=== PATIENT | male | born 1965 | race Caucasian/White ===

== ENCOUNTER 2019-12-25 09:10 | Outpatient (CLI) | payer OTHER, SELFPAY ==
[2019-12-25 09:44] LABS: Basophils Absolute Auto 0.1 K/mm3 (0.0-0.1); Basophils Percent Auto 0.9 % (0.2-1.2); Eosinophils Absolute Auto 0.6 K/mm3 (0-0.3); Eosinophils Percent Auto 8.2 % (0-4.4); Hematocrit 41.5 % (42.0-52.0); Hemoglobin 13.7 g/dL (14.0-18.0); Immature Granulocyte Absolute 0.04 K/mm3 (0.00-0.031); Immature Granulocyte Percent A 0.5 % (0-0.5); Lymphocytes Percent Auto 22.9 % (18.3-44.2); Mean Corpuscular Hemoglobin 30.9 pg (26-34); Mean Corpuscular Volume 93.7 fl (80-100); Mean Platelet Volume 9.4 fl (7.4-10.4); Monocytes Absolute Auto 0.9 K/mm3 (0.1-0.6); Monocytes Percent Auto 11.8 % (2.6-8.5); Neutrophils Absolute Auto 4.4 K/mm3 (1.3-6.7); Neutrophils Percent Auto 55.7 % (45.5-73.1); Platelet Count Result 244 k/mm3 (150-375); Red Blood Count 4.43 M/mm3 (4.6-6.20); Red Cell Distribution Width 12.9 % (11.5-14.5); White Blood Count 7.9 K/mm3 (4.5-10.0)
[2019-12-25 09:53] LABS: Hemoglobin A1C 6.1 % (<5.7)
[2019-12-25 09:58] LABS: Alanine Aminotransferase 54 U/L (4-50); Albumin Level 4.3 g/dL (3.5-5.1); Alkaline Phosphatase 72 U/L (38-126); Anion Gap 10 mmol/L (8-16); Aspartate Amino Transferase 45 U/L (17-59); Bilirubin,Total 0.4 mg/dL (0.2-1.3); Blood Urea Nitrogen 13 mg/dL (9-20); Calcium 9.4 mg/dL (8.4-10.2); Carbon Dioxide 30 mmol/L (22-30); Chloride 104 mmol/L (98-107); Cholesterol 146 mg/dL (0-200); Estimated Glomerular Filt Rate > 60; Glucose 112 mg/dL (75-110); HDL Direct 57 mg/dL; Potassium 4.4 mmol/L (3.4-5.0); Sodium 144 mmol/L (137-145); Triglycerides 73 mg/dL (<150)
[2019-12-25 10:09] LABS: LDL Cholesterol Direct 66 mg/dL
[2019-12-28 10:55] LABS: Amphetamines negative; Barbiturates negative; Benzodiazepines negative; Cocaine Metabolites negative; Marijuana Metabolites negative; PCP negative
== END 2019-12-25 09:11 | disposition home or self-care (01) ==
PROVIDERS: PCP Internal Medicine; Visit Provider Clinical Nurse Specialist
DX: E11.9 Type 2 diabetes mellitus without complications (principal); Z51.81 Encounter for therapeutic drug level monitoring; Z79.899 Other long term (current) drug therapy
CPT/HCPCS: 36415; 80053; 80061; 80307; 83036; 85025

== ENCOUNTER 2020-11-04 10:41 | Outpatient (CLI) | payer OTHER, SELFPAY ==
[2020-11-04 11:27] LABS: Basophils Absolute Auto 0.1 K/mm3 (0.0-0.1); Basophils Percent Auto 0.8 % (0.2-1.2); Eosinophils Absolute Auto 0.6 K/mm3 (0-0.3); Eosinophils Percent Auto 7.2 % (0-4.4); Hematocrit 40.1 % (42.0-52.0); Hemoglobin 13.6 g/dL (14.0-18.0); Immature Granulocyte Absolute 0.02 K/mm3 (0.00-0.031); Immature Granulocyte Percent A 0.2 % (0-0.5); Lymphocytes Absolute Auto 1.68 K/mm3 (0.9-3.2); Lymphocytes Percent Auto 20.4 % (18.3-44.2); Mean Corpuscular HGB Conc 33.9 g/dl (32-36); Mean Corpuscular Hemoglobin 28.8 pg (26-34); Mean Platelet Volume 9.4 fl (7.4-10.4); Monocytes Absolute Auto 0.7 K/mm3 (0.1-0.6); Monocytes Percent Auto 8.4 % (2.6-8.5); Neutrophils Absolute Auto 5.2 K/mm3 (1.3-6.7); Platelet Count Result 274 k/mm3 (150-375); Red Blood Count 4.72 M/mm3 (4.6-6.20); Red Cell Distribution Width 13.1 % (11.5-14.5); White Blood Count 8.2 K/mm3 (4.5-10.0)
[2020-11-04 11:38] LABS: Alanine Aminotransferase 23 U/L (4-50); Albumin Level 4.6 g/dL (3.5-5.1); Alkaline Phosphatase 113 U/L (38-126); Anion Gap 15 mmol/L (8-16); Aspartate Amino Transferase 27 U/L (17-59); Bilirubin,Total 0.8 mg/dL (0.2-1.3); Blood Urea Nitrogen 6 mg/dL (9-20); Calcium 9.2 mg/dL (8.4-10.2); Carbon Dioxide 23 mmol/L (22-30); Chloride 94 mmol/L (98-107); Cholesterol 123 mg/dL (0-200); Estimated Glomerular Filt Rate > 60; Glucose 157 mg/dL (65-110); HDL Direct 34 mg/dL; Potassium 4.4 mmol/L (3.4-5.0); Sodium 132 mmol/L (137-145); Triglycerides 110 mg/dL (<150)
[2020-11-04 11:48] LABS: Hemoglobin A1C 8.4 % (<5.7)
[2020-11-04 11:49] LABS: LDL Cholesterol Direct 65 mg/dL
[2020-11-04 12:06] LABS: Prostate Specific Antigen 1.5 ng/mL (< OR = 4.0)
[2020-11-04 12:22] LABS: Creatinine Urine 88.4 mg/dL
[2020-11-04 12:27] LABS: MALB Creatinine Ratio 28.2 mg/g (0-30); Microalbumin Urine Random 24.9 mg/L (0-16.7)
== END 2020-11-04 10:42 | disposition home or self-care (01) ==
LOC: ANHLAB 10:44
PROVIDERS: PCP Internal Medicine; Visit Provider Clinical Nurse Specialist
DX: Z12.5 Encounter for screening for malignant neoplasm of prostate (principal); I10 Essential (primary) hypertension; E11.9 Type 2 diabetes mellitus without complications; Z79.4 Long term (current) use of insulin; E78.5 Hyperlipidemia, unspecified
CPT/HCPCS: 36415; 80053; 80061; 82043; 83036; 84153; 85025; G0103

== ENCOUNTER 2021-02-14 10:27 | Outpatient (CLI) | payer OTHER, SELFPAY ==
[2021-02-14 11:02] LABS: Anion Gap 12 mmol/L (8-16); Blood Urea Nitrogen 8 mg/dL (9-20); Calcium 9.1 mg/dL (8.4-10.2); Carbon Dioxide 24 mmol/L (22-30); Chloride 102 mmol/L (98-107); Estimated Glomerular Filt Rate > 60; Glucose 228 mg/dL (65-110); Potassium 4.2 mmol/L (3.4-5.0); Sodium 138 mmol/L (137-145)
[2021-02-14 11:15] LABS: Hemoglobin A1C 9.9 % (<5.7)
[2021-02-14 11:25] LABS: Creatinine Urine 46.5 mg/dL
[2021-02-14 11:30] LABS: MALB Creatinine Ratio 14.2 mg/g (0-30); Microalbumin Urine Random 6.6 mg/L (0-16.7)
== END 2021-02-14 10:28 | disposition home or self-care (01) ==
PROVIDERS: PCP Internal Medicine; Visit Provider Clinical Nurse Specialist
DX: E11.9 Type 2 diabetes mellitus without complications (principal); Z51.81 Encounter for therapeutic drug level monitoring; Z79.4 Long term (current) use of insulin
CPT/HCPCS: 36415; 80048; 82043; 82607; 83036

== ENCOUNTER 2021-05-17 07:15 | Outpatient (CLI) | payer OTHER, SELFPAY ==
[2021-05-17 08:14] LABS: Basophils Absolute Auto 0.1 K/mm3 (0.0-0.1); Basophils Percent Auto 0.8 % (0.2-1.2); Eosinophils Absolute Auto 0.6 K/mm3 (0-0.3); Eosinophils Percent Auto 6.1 % (0-4.4); Hematocrit 37.3 % (42.0-52.0); Hemoglobin 12.3 g/dL (14.0-18.0); Immature Granulocyte Absolute 0.03 K/mm3 (0.00-0.031); Immature Granulocyte Percent A 0.3 % (0-0.5); Lymphocytes Percent Auto 23.7 % (18.3-44.2); Mean Corpuscular Hemoglobin 28.9 pg (26-34); Mean Corpuscular Volume 87.8 fl (80-100); Mean Platelet Volume 9.6 fl (7.4-10.4); Monocytes Absolute Auto 0.9 K/mm3 (0.1-0.6); Monocytes Percent Auto 9.5 % (2.6-8.5); Neutrophils Absolute Auto 5.5 K/mm3 (1.3-6.7); Neutrophils Percent Auto 59.6 % (45.5-73.1); Platelet Count Result 249 k/mm3 (150-375); Red Blood Count 4.25 M/mm3 (4.6-6.20); Red Cell Distribution Width 14.9 % (11.5-14.5); White Blood Count 9.3 K/mm3 (4.5-10.0)
[2021-05-17 08:36] LABS: Alanine Aminotransferase 16 U/L (4-50); Alkaline Phosphatase 96 U/L (38-126); Anion Gap 6 mmol/L (8-16); Aspartate Amino Transferase 25 U/L (17-59); Bilirubin,Total 0.4 mg/dL (0.2-1.3); Blood Urea Nitrogen 13 mg/dL (9-20); Calcium 8.6 mg/dL (8.4-10.2); Carbon Dioxide 28 mmol/L (22-30); Chloride 105 mmol/L (98-107); Estimated Glomerular Filt Rate > 60; Glucose 109 mg/dL (65-110); Potassium 3.7 mmol/L (3.4-5.0); Sodium 139 mmol/L (137-145)
[2021-05-17 08:43] LABS: Hemoglobin A1C 6.7 % (<5.7)
== END 2021-05-17 07:16 | disposition home or self-care (01) ==
LOC: ANHLAB 07:16
PROVIDERS: PCP Internal Medicine; Visit Provider Nurse Practitioner
DX: E11.9 Type 2 diabetes mellitus without complications (principal); Z79.4 Long term (current) use of insulin
CPT/HCPCS: 36415; 80053; 83036; 85025

== ENCOUNTER 2021-08-24 07:05 | Outpatient (CLI) | payer OTHER, SELFPAY ==
[2021-08-24 07:36] LABS: Anion Gap 7 mmol/L (8-16); Blood Urea Nitrogen 12 mg/dL (9-20); Calcium 8.7 mg/dL (8.4-10.2); Carbon Dioxide 27 mmol/L (22-30); Chloride 103 mmol/L (98-107); Estimated Glomerular Filt Rate > 60; Glucose 93 mg/dL (65-110); Potassium 3.9 mmol/L (3.4-5.0); Sodium 137 mmol/L (137-145)
[2021-08-24 08:34] LABS: Creatinine Urine 36.2 mg/dL
[2021-08-24 09:05] LABS: MALB Creatinine Ratio < 16.6 mg/g (0-30); Microalbumin Urine Random < 6.0 mg/L (0-16.7)
== END 2021-08-24 07:06 | disposition home or self-care (01) ==
LOC: ANHLAB 07:06
PROVIDERS: PCP Internal Medicine; Visit Provider Clinical Nurse Specialist
DX: E11.9 Type 2 diabetes mellitus without complications (principal); Z79.4 Long term (current) use of insulin
CPT/HCPCS: 36415; 80048; 82043; 83036

== ENCOUNTER 2021-10-25 00:52 | Day surgery (SDC) | payer OTHER, SELFPAY ==
[2021-10-12 13:20] VITALS: BMI 49.8
[2021-10-25 07:45] VITALS: BP 150/87; PULSE 58; RESP 18; TEMP 35.9; O2SAT 99; BMI 49.7
[2021-10-25] MEDS: LACTATED RINGERS 1,000 ML 150 ML IV CONT (08:14)
[2021-10-25 08:16] LABS: Glucose Point of Care 144 mg/dl (65-105)
--- NOTE | 2021-10-25 08:34 | WPDANESEPPF ---
Anes - Initial Pre Proc Eval Procedure: Operation Date: 10/25/21 09:15 Proposed Procedures p Screening Colonoscopy - Babak Duke MD Date/Time: 10/25/21 08:34 Surgeon: Babak Duke MD Pre Op Diagnosis: neoplasm screening, hx colon polyps Patient Data Age: 56 Gender: M Height: 1.7 m Weight: 144.1 kg Last Vital Signs Temp 35.9 C L 10/25/21 07:45 Pulse 58 L 10/25/21 07:45 Resp 18 10/25/21 07:45 BP 150/87 H 10/25/21 07:45 Pulse Ox 99 10/25/21 07:45 O2 Del Method Room Air 10/25/21 07:45 Allergies Allergy/AdvReac Type Severity Reaction Status Date / Time ONDINA Inhibitors Allergy Mild Cough Verified 10/25/21 07:56 Home Medications Medication Instructions Recorded Confirmed Type blood-glucose meter (Blood Glucose #1 ea 11/17/20 10/25/21 Rx Monitoring kit) metoprolol tartrate 100 mg tablet 100 mg PO DAILY #90 tabs 01/04/21 10/25/21 Rx metformin 1,000 mg tablet 1,000 mg PO BID #180 tabs 06/22/21 10/25/21 Rx atorvastatin 40 mg tablet See Rx Instructions .Route 08/02/21 10/25/21 Rx .COMPLEX #90 tabs losartan 100 mg tablet See Rx Instructions .Route 08/02/21 10/25/21 Rx .COMPLEX #90 tabs tamsulosin 0.4 mg capsule See Rx Instructions .Route 08/02/21 10/25/21 Rx .COMPLEX #90 caps insulin glargine 100 unit/mL See Rx Instructions .Route 08/25/21 10/25/21 Rx subcutaneous solution (Lantus .COMPLEX #10 mL U-100 Insulin) hydralazine 50 mg tablet See Rx Instructions .Route 10/03/21 10/25/21 Rx .COMPLEX #270 tabs Laboratory Tests 10/25/21 08:03 POC Capillary Glucose 144 mg/dl H mg/dl (65-105) Patient hx anesthesia problems: none Family hx anesthesia problems: none Results Review: All pre-operative results and documents have been reviewed as part of the pre-operative evaluation. [facility] Past Medical History Medical History (Updated 10/25/21 @ 08:35 by Nathaniel Rogers MD) Anxiety Depression Diabetes Hyperlipidemia, unspecified Hypertension Morbid obesity Surgical History Surgical History H/O gastric bypass History of appendectomy History of carpal tunnel release Family History Family History Mother FH: ovarian cancer Hypertension Social History Social History Smoking packs per day: 0.5 Smoking cigarettes per day: 10.0 Years smoked: 10 Smoking pack-years: 5.00 Smoking status: Former smoker Tobacco type: cigarettes Alcohol intake: never Substance use type: does not use Living arrangements: alone Anes - Eval Final PreProcedure Day of Procedure 10/25/21 08:34 Patient weight: morbidly obese Heart: regular rate and rhythm Lungs: clear to auscultation Neurological: alert and oriented Last oral intake: >/= 8 hours ASA classification: III Emergent: no Anesthetic plan: proceed Anesthesia type and monitoring: general GIVS and standard monitoring Results Review: All pre-operative results and documents have been reviewed as part of the pre-operative evaluation. Informed Consent: The patient's anesthetic plan and its attendant risks and benefits were discussed with the patient/family/POA. Questions were solicited and answers provided to the satisfaction of the patient/family/POA.
--- NOTE | 2021-10-25 08:56 | PM.HPGS ---
History of Present Illness History of Present Illness Consent: Risks, benefits, and alternatives have been discussed and questions answered. Patient agrees to proceed with procedure. Chief complaint: neoplasm screening, hx colon polyps Narrative: Bonifacio Campuzano is a 56 year old male with colon polyp in 2019 Review of Systems Constitutional: Constitutional: Denies headache(s) and Denies weakness Eyes: Eyes: Denies blurry vision ENT: Reports Normal hearing present, Denies headache(s) and Denies neck pain Cardiovascular: Cardiovascular: Denies chest pain and Denies dyspnea Respiratory: Respiratory: Denies dyspnea Gastrointestinal: Gastrointestinal: Reports no additional gastrointestinal complaints Genitourinary: Genitourinary: Denies dysuria Musculoskeletal: Musculoskeletal: Denies neck pain Integumentary/Breasts: Skin/Breast: Denies dry skin Neurologic: Reports Normal hearing present, Denies headache(s) and Denies weakness Psychiatric: Psychiatric: Denies anxiety Endocrine: Endocrine: Denies change in body appearance Hematologic/Lymphatic: Hematologic/Lymphatic: Denies easy bleeding Allergic/Immunologic: Allergic/Immunologic: Denies urticaria PMFSH Past Medical History Medical History (Updated 10/25/21 @ 08:56 by Babak Duke MD) Adenomatous colon polyp Anxiety Depression Diabetes Hyperlipidemia, unspecified Hypertension Morbid obesity Surgical History Surgical History H/O gastric bypass History of appendectomy History of carpal tunnel release Family History Family History Mother FH: ovarian cancer Hypertension Social History Social History Smoking packs per day: 0.5 Smoking cigarettes per day: 10.0 Years smoked: 10 Smoking pack-years: 5.00 Smoking status: Former smoker Tobacco type: cigarettes Alcohol intake: never Substance use type: does not use Living arrangements: alone Meds Home Medications and Allergies Home Medications Medication Instructions Recorded Confirmed Type blood-glucose meter (Blood Glucose #1 ea 11/17/20 10/25/21 Rx Monitoring kit) metoprolol tartrate 100 mg tablet 100 mg PO DAILY #90 tabs 01/04/21 10/25/21 Rx metformin 1,000 mg tablet 1,000 mg PO BID #180 tabs 06/22/21 10/25/21 Rx atorvastatin 40 mg tablet See Rx Instructions .Route 08/02/21 10/25/21 Rx .COMPLEX #90 tabs losartan 100 mg tablet See Rx Instructions .Route 08/02/21 10/25/21 Rx .COMPLEX #90 tabs tamsulosin 0.4 mg capsule See Rx Instructions .Route 08/02/21 10/25/21 Rx .COMPLEX #90 caps insulin glargine 100 unit/mL See Rx Instructions .Route 08/25/21 10/25/21 Rx subcutaneous solution (Lantus .COMPLEX #10 mL U-100 Insulin) hydralazine 50 mg tablet See Rx Instructions .Route 10/03/21 10/25/21 Rx .COMPLEX #270 tabs Allergies Allergy/AdvReac Type Severity Reaction Status Date / Time ONDINA Inhibitors Allergy Mild Cough Verified 10/25/21 07:56 Vital Signs Vital Signs - 24 hr 10/25/21 07:45 Temperature 96.6 F L Pulse Rate 58 L Respiratory Rate 18 Blood Pressure 150/87 H Pulse Oximetry 99 Oxygen Delivery Room Air Exam Const: General: comfortable and no acute distress HENMT: General nose exam: Normal nares present Eyes: General: appearance normal, both eyes and all related structures Neck: Neck: no JVD Resp: Auscultation: clear to auscultation bilaterally Cardio: Rate: regular rate Rhythm: regular rhythm GI: Inspection: non-distended GI Palp: Yes Soft to palpation Skin: General skin exam: normal color Neuro: General: gait normal Speech: normal speech Extrem: General: normal to inspection Psych: Mental Status: mental status grossly normal Assessment and Plan Assessment and plan (1) Adenomatous colon polyp: Code(s): D12.6 -
[2021-10-25 09:22] VITALS: BP 126/55; PULSE 52; RESP 17; O2SAT 97
[2021-10-25 09:32] VITALS: BP 120/56; PULSE 52; RESP 19; O2SAT 96
[2021-10-25 09:34] LABS: Glucose Point of Care 141 mg/dl (65-105)
[2021-10-25 09:42] VITALS: BP 125/58; PULSE 48; RESP 12; O2SAT 97
== END 2021-10-25 09:47 | disposition home or self-care (01) ==
PROVIDERS: PCP Internal Medicine; Visit Provider Internal Medicine Gastroenterology
PROC: 0DJD8ZZ Inspection of Lower Intestinal Tract, Via Natural or Artificial Opening Endoscopic (ICD-10-PCS; CPT 45378; principal; 2021-10-25 09:15)
DX: Z12.11 Encounter for screening for malignant neoplasm of colon (principal); D12.3 Benign neoplasm of transverse colon; E11.9 Type 2 diabetes mellitus without complications; I10 Essential (primary) hypertension; E78.5 Hyperlipidemia, unspecified; F41.9 Anxiety disorder, unspecified; F32.A Depression, unspecified; E66.01 Morbid (severe) obesity due to excess calories; Z68.42 Body mass index [BMI] 45.0-49.9, adult; Z98.84 Bariatric surgery status; Z79.84 Long term (current) use of oral hypoglycemic drugs; Z79.4 Long term (current) use of insulin; Z87.891 Personal history of nicotine dependence
CPT/HCPCS: 45385; 82948; 88305; J2704; J7120

== ENCOUNTER 2022-01-23 09:36 | Outpatient (CLI) | payer OTHER, SELFPAY ==
[2022-01-23 19:54] LABS: Alanine Aminotransferase 23 U/L (6-50); Alkaline Phosphatase 96 U/L (38-126); Anion Gap 6 mmol/L (8-16); Aspartate Amino Transferase 22 U/L (17-59); Bilirubin,Total 0.3 mg/dL (0.2-1.3); Blood Urea Nitrogen 19 mg/dL (9-20); Calcium 8.5 mg/dL (8.4-10.2); Carbon Dioxide 28 mmol/L (22-30); Chloride 103 mmol/L (98-107); Estimated Glomerular Filt Rate > 60; Glucose 165 mg/dL (65-110); Potassium 4.8 mmol/L (3.4-5.0); Sodium 137 mmol/L (137-145)
[2022-01-23 20:06] LABS: Basophils Absolute Auto 0.1 K/mm3 (0.0-0.1); Eosinophils Absolute Auto 0.6 K/mm3 (0-0.3); Eosinophils Percent Auto 5.4 % (0-4.4); Hematocrit 38.1 % (42.0-52.0); Hemoglobin 12.4 g/dL (14.0-18.0); Immature Granulocyte Absolute 0.02 K/mm3 (0.00-0.031); Immature Granulocyte Percent A 0.2 % (0-0.5); Lymphocytes Percent Auto 18.6 % (18.3-44.2); Mean Corpuscular HGB Conc 32.5 g/dl (32-36); Mean Corpuscular Hemoglobin 28.1 pg (26-34); Mean Corpuscular Volume 86.4 fl (80-100); Mean Platelet Volume 9.9 fl (7.4-10.4); Monocytes Absolute Auto 0.7 K/mm3 (0.1-0.6); Monocytes Percent Auto 7.1 % (2.6-8.5); Neutrophils Absolute Auto 6.9 K/mm3 (1.3-6.7); Neutrophils Percent Auto 67.7 % (45.5-73.1); Platelet Count Result 293 k/mm3 (150-375); Red Blood Count 4.41 M/mm3 (4.6-6.20); White Blood Count 10.2 K/mm3 (4.5-10.0)
[2022-01-23 20:41] LABS: Creatinine Urine 81.4 mg/dL
[2022-01-23 20:43] LABS: MALB Creatinine Ratio 7.6 mg/g (0-30); Microalbumin Urine Random 6.2 mg/L (0-16.7)
[2022-01-23 21:02] LABS: Iron 41 ug/dL (49-181)
[2022-01-23 21:11] LABS: Percent Iron Saturation 10 % (20-50)
[2022-01-23 21:28] LABS: Vitamin D 25 Hydroxy 23.9 ng/mL
[2022-01-23 21:38] LABS: Ferritin 9.87 ng/mL (11.1-264)
[2022-01-23 21:51] LABS: Hemoglobin A1C 9.6 % (<5.7)
== END 2022-01-23 09:37 | disposition home or self-care (01) ==
LOC: ANHGOSHLAB 09:38
PROVIDERS: PCP Internal Medicine; Visit Provider Clinical Nurse Specialist
DX: E11.9 Type 2 diabetes mellitus without complications (principal); Z79.4 Long term (current) use of insulin; D64.9 Anemia, unspecified; I10 Essential (primary) hypertension; E55.9 Vitamin D deficiency, unspecified
CPT/HCPCS: 36415; 80053; 82043; 82306; 82607; 82728; 83036; 83540; 83550; 84443; 85025

== ENCOUNTER 2022-04-26 09:41 | Outpatient (CLI) | payer OTHER, SELFPAY ==
[2022-04-26 20:15] LABS: Prostate Specific Antigen 1.3 ng/mL (< OR = 4.0)
[2022-04-26 20:19] LABS: Iron 46 ug/dL (49-181)
[2022-04-26 20:32] LABS: Percent Iron Saturation 11 % (20-50)
[2022-04-26 20:36] LABS: Basophils Absolute Auto 0.1 K/mm3 (0.0-0.1); Basophils Percent Auto 0.9 % (0.2-1.2); Eosinophils Absolute Auto 0.3 K/mm3 (0-0.3); Hematocrit 41.2 % (42.0-52.0); Hemoglobin 13.6 g/dL (14.0-18.0); Immature Granulocyte Absolute 0.03 K/mm3 (0.00-0.031); Immature Granulocyte Percent A 0.4 % (0-0.5); Immature Reticulocyte Fraction 6.9 % (3.0-15.9); Lymphocytes Absolute Auto 1.99 K/mm3 (0.9-3.2); Lymphocytes Percent Auto 24.6 % (18.3-44.2); Mean Corpuscular Hemoglobin 28.9 pg (26-34); Mean Corpuscular Volume 87.7 fl (80-100); Mean Platelet Volume 10.1 fl (7.4-10.4); Monocytes Absolute Auto 0.6 K/mm3 (0.1-0.6); Monocytes Percent Auto 7.2 % (2.6-8.5); Neutrophils Absolute Auto 5.1 K/mm3 (1.3-6.7); Neutrophils Percent Auto 62.9 % (45.5-73.1); Platelet Count Result 272 k/mm3 (150-375); Red Cell Distribution Width 14.9 % (11.5-14.5); Reticulocyte Percent 1.73 % (0.7-4.3); Reticulocytes Absolute 0.08 B/L (32.2-175.7); White Blood Count 8.1 K/mm3 (4.5-10.0)
[2022-04-26 20:41] LABS: Hemoglobin A1C 7.3 % (<5.7)
== END 2022-04-26 09:42 | disposition home or self-care (01) ==
LOC: ANHGOSHLAB 09:42
PROVIDERS: PCP Internal Medicine; Visit Provider Clinical Nurse Specialist
DX: E11.9 Type 2 diabetes mellitus without complications (principal); D64.9 Anemia, unspecified; Z12.5 Encounter for screening for malignant neoplasm of prostate; I10 Essential (primary) hypertension; E55.9 Vitamin D deficiency, unspecified
CPT/HCPCS: 36415; 82306; 82728; 83036; 83540; 83550; 84153; 84443; 85025; 85046; G0103

== ENCOUNTER 2022-11-02 08:44 | Outpatient (CLI) | payer OTHER, SELFPAY ==
[2022-11-02 17:03] LABS: Anion Gap 7 mmol/L (8-16); Blood Urea Nitrogen 10 mg/dL (9-20); Calcium 8.8 mg/dL (8.4-10.2); Carbon Dioxide 29 mmol/L (22-30); Chloride 101 mmol/L (98-107); Estimated Glomerular Filt Rate > 60; Glucose 113 mg/dL (65-110); Potassium 3.9 mmol/L (3.4-5.0); Sodium 137 mmol/L (137-145)
[2022-11-02 23:09] LABS: Creatinine Urine 118.6 mg/dL
[2022-11-02 23:13] LABS: MALB Creatinine Ratio 7.3 mg/g (0-30); Microalbumin Urine Random 8.7 mg/L (0-16.7)
== END 2022-11-02 08:45 | disposition home or self-care (01) ==
LOC: ANHGOSHLAB 08:46
PROVIDERS: PCP Internal Medicine; Visit Provider Clinical Nurse Specialist
DX: E11.9 Type 2 diabetes mellitus without complications (principal); Z79.4 Long term (current) use of insulin
CPT/HCPCS: 36415; 80048; 82043; 83036

== ENCOUNTER 2023-03-08 09:37 | Outpatient (CLI) | payer OTHER, SELFPAY ==
[2023-03-08 12:28] LABS: Basophils Absolute Auto 0.1 K/mm3 (0.0-0.1); Basophils Percent Auto 0.6 % (0.2-1.2); Eosinophils Absolute Auto 0.4 K/mm3 (0-0.3); Eosinophils Percent Auto 3.9 % (0-4.4); Hematocrit 39.8 % (42.0-52.0); Hemoglobin 13.1 g/dL (14.0-18.0); Immature Granulocyte Absolute 0.04 K/mm3 (0.00-0.031); Immature Granulocyte Percent A 0.4 % (0-0.5); Lymphocytes Absolute Auto 1.74 K/mm3 (0.9-3.2); Lymphocytes Percent Auto 15.7 % (18.3-44.2); Mean Corpuscular HGB Conc 32.9 g/dl (32-36); Mean Corpuscular Hemoglobin 29.3 pg (26-34); Mean Platelet Volume 9.4 fl (7.4-10.4); Monocytes Absolute Auto 0.8 K/mm3 (0.1-0.6); Monocytes Percent Auto 6.8 % (2.6-8.5); Neutrophils Percent Auto 72.6 % (45.5-73.1); Platelet Count Result 298 k/mm3 (150-375); Red Blood Count 4.47 M/mm3 (4.6-6.20); Red Cell Distribution Width 13.4 % (11.5-14.5); White Blood Count 11.1 K/mm3 (4.5-10.0)
[2023-03-08 12:43] LABS: Iron 43 ug/dL (49-181)
[2023-03-08 12:49] LABS: Percent Iron Saturation 14 % (20-50)
[2023-03-08 12:52] LABS: Alanine Aminotransferase 21 U/L (6-50); Albumin Level 3.9 g/dL (3.5-5.1); Alkaline Phosphatase 99 U/L (38-126); Anion Gap 10 mmol/L (8-16); Aspartate Amino Transferase 42 U/L (17-59); Bilirubin,Total 0.4 mg/dL (0.2-1.3); Blood Urea Nitrogen 9 mg/dL (9-20); Carbon Dioxide 24 mmol/L (22-30); Chloride 103 mmol/L (98-107); Estimated Glomerular Filt Rate > 60; Glucose 124 mg/dL (65-110); Potassium 4.1 mmol/L (3.4-5.0); Sodium 137 mmol/L (137-145)
[2023-03-08 13:03] LABS: Hemoglobin A1C 7.6 % (<5.7)
[2023-03-08 13:27] LABS: Prostate Specific Antigen 1.1 ng/mL (< OR = 4.0)
[2023-03-09 01:54] LABS: Vitamin D 25 Hydroxy 29.6 ng/mL
== END 2023-03-08 09:38 | disposition home or self-care (01) ==
LOC: ANHGOSHLAB 09:38
PROVIDERS: PCP Internal Medicine; Visit Provider Clinical Nurse Specialist
DX: E11.9 Type 2 diabetes mellitus without complications (principal); D64.9 Anemia, unspecified; I10 Essential (primary) hypertension; Z12.5 Encounter for screening for malignant neoplasm of prostate; E55.9 Vitamin D deficiency, unspecified
CPT/HCPCS: 36415; 80053; 82306; 82607; 82728; 83036; 83540; 83550; 84153; 84443; 85025; G0103

== ENCOUNTER 2023-07-09 11:40 | Outpatient (CLI) | payer OTHER, SELFPAY ==
[2023-07-09 19:42] LABS: Basophils Absolute Auto 0.1 K/mm3 (0.0-0.1); Basophils Percent Auto 0.9 % (0.2-1.2); Eosinophils Absolute Auto 0.6 K/mm3 (0-0.3); Eosinophils Percent Auto 5.5 % (0-4.4); Hematocrit 40.4 % (42.0-52.0); Hemoglobin 13.3 g/dL (14.0-18.0); Immature Granulocyte Absolute 0.07 K/mm3 (0.00-0.031); Immature Granulocyte Percent A 0.6 % (0-0.5); Lymphocytes Absolute Auto 2.41 K/mm3 (0.9-3.2); Lymphocytes Percent Auto 21.7 % (18.3-44.2); Mean Corpuscular HGB Conc 32.9 g/dl (32-36); Mean Corpuscular Hemoglobin 29.6 pg (26-34); Mean Corpuscular Volume 89.8 fl (80-100); Mean Platelet Volume 10.1 fl (7.4-10.4); Monocytes Absolute Auto 1.1 K/mm3 (0.1-0.6); Monocytes Percent Auto 10.2 % (2.6-8.5); Neutrophils Absolute Auto 6.8 K/mm3 (1.3-6.7); Neutrophils Percent Auto 61.1 % (45.5-73.1); Platelet Count Result 270 k/mm3 (150-375); Red Cell Distribution Width 13.4 % (11.5-14.5); White Blood Count 11.1 K/mm3 (4.5-10.0)
[2023-07-09 20:15] LABS: Creatinine Urine 103.7 mg/dL
[2023-07-09 20:17] LABS: Iron 79 ug/dL (49-181)
[2023-07-09 20:22] LABS: MALB Creatinine Ratio 20.3 mg/g (0-30); Microalbumin Urine Random 21.1 mg/L (0-16.7)
[2023-07-09 20:27] LABS: Percent Iron Saturation 23 % (20-50)
[2023-07-09 20:38] LABS: Anion Gap 10 mmol/L (4-12); Blood Urea Nitrogen 16 mg/dL (9-20); Calcium 8.7 mg/dL (8.4-10.2); Carbon Dioxide 27 mmol/L (22-30); Chloride 101 mmol/L (98-107); Estimated Glomerular Filt Rate > 60; Glucose 151 mg/dL (65-110); Potassium 4.4 mmol/L (3.4-5.0); Sodium 138 mmol/L (137-145)
== END 2023-07-09 11:41 | disposition home or self-care (01) ==
LOC: ANHGOSHLAB 11:42
PROVIDERS: PCP Internal Medicine; Visit Provider Clinical Nurse Specialist
DX: D64.9 Anemia, unspecified (principal); E11.9 Type 2 diabetes mellitus without complications
CPT/HCPCS: 36415; 80048; 82043; 82728; 83036; 83540; 83550; 85025

== ENCOUNTER 2023-11-05 10:49 | Outpatient (CLI) | payer OTHER, SELFPAY ==
[2023-11-05 13:25] LABS: Basophils Absolute Auto 0.1 K/mm3 (0.0-0.1); Eosinophils Absolute Auto 0.3 K/mm3 (0-0.3); Eosinophils Percent Auto 3.8 % (0-4.4); Hematocrit 43.3 % (42.0-52.0); Hemoglobin 14.2 g/dL (14.0-18.0); Immature Granulocyte Absolute 0.04 K/mm3 (0.00-0.031); Immature Granulocyte Percent A 0.5 % (0-0.5); Lymphocytes Absolute Auto 1.75 K/mm3 (0.9-3.2); Mean Corpuscular HGB Conc 32.8 g/dl (32-36); Mean Corpuscular Hemoglobin 29.8 pg (26-34); Mean Corpuscular Volume 90.8 fl (80-100); Mean Platelet Volume 10.2 fl (7.4-10.4); Monocytes Absolute Auto 0.7 K/mm3 (0.1-0.6); Neutrophils Absolute Auto 5.9 K/mm3 (1.3-6.7); Neutrophils Percent Auto 66.7 % (45.5-73.1); Platelet Count Result 280 k/mm3 (150-375); Red Blood Count 4.77 M/mm3 (4.6-6.20); Red Cell Distribution Width 14.3 % (11.5-14.5); White Blood Count 8.8 K/mm3 (4.5-10.0)
[2023-11-05 13:30] LABS: Anion Gap 10 mmol/L (4-12); Blood Urea Nitrogen 5 mg/dL (9-20); Calcium 8.8 mg/dL (8.4-10.2); Carbon Dioxide 31 mmol/L (22-30); Chloride 91 mmol/L (98-107); Cholesterol 113 mg/dL (0-200); Estimated Glomerular Filt Rate > 60; Glucose 92 mg/dL (65-110); HDL Direct 44 mg/dL; Potassium 3.4 mmol/L (3.4-5.0); Sodium 132 mmol/L (137-145); Triglycerides 89 mg/dL (<150)
[2023-11-05 13:41] LABS: LDL Cholesterol Direct 47 mg/dL
[2023-11-05 18:29] LABS: Hemoglobin A1C 6.1 % (<5.7)
== END 2023-11-05 10:50 | disposition home or self-care (01) ==
LOC: ANHGOSHLAB 10:50
PROVIDERS: PCP Clinical Nurse Specialist; Visit Provider Clinical Nurse Specialist
DX: D64.9 Anemia, unspecified (principal); E11.9 Type 2 diabetes mellitus without complications; E78.5 Hyperlipidemia, unspecified; E87.1 Hypo-osmolality and hyponatremia; I10 Essential (primary) hypertension
CPT/HCPCS: 36415; 80048; 80061; 83036; 85025

== ENCOUNTER 2023-11-06 15:16 | Outpatient (CLI) | payer OTHER, SELFPAY ==
[2023-11-06 19:38] LABS: Anion Gap 9 mmol/L (4-12); Blood Urea Nitrogen 9 mg/dL (9-20); Calcium 8.8 mg/dL (8.4-10.2); Carbon Dioxide 31 mmol/L (22-30); Chloride 97 mmol/L (98-107); Estimated Glomerular Filt Rate > 60; Glucose 118 mg/dL (65-110); Potassium 3.7 mmol/L (3.4-5.0); Sodium 137 mmol/L (137-145)
== END 2023-11-06 15:17 | disposition home or self-care (01) ==
LOC: ANHGOSHLAB 15:17
PROVIDERS: PCP Clinical Nurse Specialist; Visit Provider Nurse Practitioner
DX: E87.1 Hypo-osmolality and hyponatremia (principal)
CPT/HCPCS: 36415; 80048

== ENCOUNTER 2023-11-08 08:21 | Outpatient (CLI) | payer OTHER, SELFPAY ==
--- NOTE | ~2023-11-08 | XR_ITS ---
3 VIEWS LUMBAR SPINE Ordering provider: Chary Curtis NP History: . LEFT SIDE LOW BACK PAIN RADIATING DOWN LEFT LEG . Comparison: None. FINDINGS: VERTEBRAL BODIES: Dextroscoliosis. Reversal of lordosis. Transitional vertebra is noted. No visible fracture or subluxation. Degenerative changes of the spine. DISK SPACES: Narrowing of the disc L2-L3, L3-L4,, L4-L5 and L5-S1. Multilevel facet joint disease. SOFT TISSUES: Aortic atherosclerotic changes. IMPRESSION: No acute osseous abnormality lumbar spine. Multilevel degenerative disc disease. Reviewed, dictated and finalized at location A.
== END 2023-11-08 08:22 | disposition home or self-care (01) ==
PROVIDERS: PCP Clinical Nurse Specialist; Visit Provider Nurse Practitioner
DX: M51.36 Other intervertebral disc degeneration, lumbar region (principal); M51.37 Other intervertebral disc degeneration, lumbosacral region
CPT/HCPCS: 72110

== ENCOUNTER 2023-11-24 19:38 | Emergency (ER) | payer OTHER, SELFPAY ==
--- NOTE | ~2023-11-24 | CT_ITS ---
EXAMINATION: CT brain wo con DATE: 11/24/2023 20:51 INDICATION: AMS . TECHNIQUE: Computed tomography (CT) of the head was performed without intravenous contrast. The mA wa s adjusted according to patient size. Iterative reconstruction technique was employed. The dose-lengt h product was 681.00 mGy-cm. COMPARISON: 10/27/2015. FINDINGS: No acute intracranial hemorrhage or extra-axial fluid collection. No hydrocephalus, mass, or herniation. No acute ischemic infarct. Unremarkable dural venous sinus attenuation. No acute osseous abnormality. The aerated spaces are clear. Moderate atrophy and mild chronic white matter change. Atherosclerotic intracranial calcification. IMPRESSION: No acute intracranial process. Reviewed, dictated and finalized at location K.
[2023-11-24 19:40] VITALS: BP 168/117; PULSE 93; RESP 18; TEMP 36.4; O2SAT 100
--- NOTE | 2023-11-24 19:48 | PC.NURSE ---
POC glucose in triage 138.
[2023-11-24 19:49] LABS: Glucose Point of Care 138 mg/dl (65-105)
[2023-11-24 19:59] VITALS: BP 195/109; PULSE 90; O2SAT 99
--- NOTE | 2023-11-24 20:06 | ECG_ITS ---
Test Date: 2023-11-24 22:14:42 Measurements Intervals [place] Rate: 85 P: 17 AR: 174 QRS: -23 QRSD: 99 T: 17 QT: 374 QTc: 446 Interpretive Statements SINUS RHYTHM BORDERLINE LEFT AXIS DEVIATION [QRS AXIS < -20] VOLTAGE CRITERIA FOR LVH [MEETS CRITERIA IN ONE OF: R(aVL), S(V1), R(V5), R(V5/V6)+S(V1)] No previous ECG available for comparison Electronically Signed On 11-25-2023 14:29:25 CDT by Nathan Caraballo M.D.
[2023-11-24 20:27] VITALS: O2SAT 98
--- NOTE | 2023-11-24 20:44 | ED.AMS ---
HPI - Altered Mental Status General Chief Complaint: Altered Mental Status Stated Complaint: Confused Time Seen by Provider: 11/24/23 20:02 History of Present Illness HPI narrative: 58-year-old male with a past medical history significant for insulin-dependent diabetes, morbid obesity and sciatica. Patient presents to the emergency department accompanied by his niece and nephew. They state that patient was altered today and confused and having memory issues. Patient apparently had a fall in the garage and they attribute his confusion to occurring after this. He has no evidence external signs of trauma, scalp hematoma or bleeding. Patient states he remembers falling but states that he does not feel confused and feels in his normal state of health. Niece at bedside states that when they came to the patient's household after they called him and he stated that he fell they almost did not recognize him and was confused. They did not check his sugar initially but he did have improvement in his symptoms after he drank vitamin water. He has not been using a glucometer recently as his old 1 broke. Recent changes were made to his Lantus and monitor ER regimen which could contribute to potential hypoglycemic episode. Patient also has a history of alcoholism and the niece's states that he resembles the last time he had significant alcohol intake. Patient denies any alcohol intake at this time. Patient states he has had intermittent headaches for last few weeks but otherwise denies any vision change, nausea, vomiting, abdominal pain, back pain, fever, chills. Related Data Allergies Allergy/AdvReac Type Severity Reaction Status Date / Time ONDINA Inhibitors Allergy Mild Cough Verified 11/06/23 14:50 Review of Systems Review of Systems: As reviewed above in HPI [facility] Past Medical History Medical History Adenomatous colon polyp Anxiety Depression Diabetes Hyperlipidemia, unspecified Hypertension Morbid obesity Surgical History Surgical History H/O gastric bypass History of appendectomy History of carpal tunnel release Family History Family History Mother FH: ovarian cancer Hypertension Social History Social History Smoking packs per day: 0 Smoking cigarettes per day: 0.0 Years smoked: 10 Smoking pack-years: 0.00 Smoking status: Former smoker Tobacco type: cigarettes Smoking end date: 02/12/04 Additional smoking assessment comments: quit smoking over 20 yrs ago Alcohol intake: never Substance use type: does not use Lack of Transportation: No Lack of Food: Never True Current Housing: I Have Housing Concerned About Future Housing: No Difficulty Paying Gas/Electric Bills: No Difficulty Paying for Meds: No Currently Unemployed: No Education: Bachelor's Degree Difficulty w/ Childcare or Family Care: No Living arrangements: alone Exam Narrative: GENERAL: Morbidly obese but not any acute distress, answering all my questions appropriately, no external evidence of trauma. HEAD: [Normocephalic, atraumatic.] EYES: [PERRLA and EOMI.] ENT: Nares clear, no rhinorrhea or epistaxis. Mucous membranes moist. NECK: Supple. CHEST: [Clear to auscultation. No respiratory distress.] HEART: [Regular rate and rhythm]. No murmur heard. [Normal peripheral pulses.] ABDOMEN: [Soft, nondistended], [nontender], [No rigidity or guarding] EXTREMITIES: Normal range of motion. [No edema.] SKIN: Warm, dry, no rash. NEURO: [No focal deficits]. Alert and oriented [x3.] PSYCH: [Normal mood and affect.] Course Vital Signs Vital signs: Vital Signs Temperature 36.4 C 11/24/23 19:40 Pulse Rate 93 11/24/23 19:40 Respiratory Rate 18 11/24/23 19:40 Bloo
[2023-11-24] MEDS: SODIUM CHLORIDE 0.9% IV 1,000 ML 999 ML IV CONT (21:15)
[2023-11-24 21:43] LABS: Basophils Absolute Auto 0.1 K/mm3 (0.0-0.1); Basophils Percent Auto 0.6 % (0.2-1.2); Eosinophils Absolute Auto 0.1 K/mm3 (0-0.3); Eosinophils Percent Auto 0.5 % (0-4.4); Hematocrit 38.9 % (42.0-52.0); Hemoglobin 13.5 g/dL (14.0-18.0); Immature Granulocyte Absolute 0.04 K/mm3 (0.00-0.031); Immature Granulocyte Percent A 0.4 % (0-0.5); Lymphocytes Absolute Auto 1.33 K/mm3 (0.9-3.2); Lymphocytes Percent Auto 12.2 % (18.3-44.2); Mean Corpuscular HGB Conc 34.7 g/dl (32-36); Mean Corpuscular Hemoglobin 30.1 pg (26-34); Mean Corpuscular Volume 86.6 fl (80-100); Mean Platelet Volume 9.2 fl (7.4-10.4); Monocytes Absolute Auto 0.8 K/mm3 (0.1-0.6); Monocytes Percent Auto 7.1 % (2.6-8.5); Neutrophils Absolute Auto 8.7 K/mm3 (1.3-6.7); Neutrophils Percent Auto 79.2 % (45.5-73.1); Platelet Count Result 308 k/mm3 (150-375); Red Blood Count 4.49 M/mm3 (4.6-6.20); Red Cell Distribution Width 14.1 % (11.5-14.5); White Blood Count 10.9 K/mm3 (4.5-10.0)
[2023-11-24 21:57] LABS: Alanine Aminotransferase 15 U/L (6-50); Albumin Level 4.5 g/dL (3.5-5.1); Alkaline Phosphatase 105 U/L (38-126); Anion Gap 13 mmol/L (4-12); Aspartate Amino Transferase 28 U/L (17-59); Bilirubin,Total 0.7 mg/dL (0.2-1.3); Blood Urea Nitrogen 9 mg/dL (9-20); Calcium 9.5 mg/dL (8.4-10.2); Carbon Dioxide 24 mmol/L (22-30); Chloride 97 mmol/L (98-107); Creatine Kinase 217 U/L (55-170); Estimated CRCL calculation 113 ml/min; Estimated Glomerular Filt Rate > 60; Glucose 115 mg/dL (65-110); Potassium 3.3 mmol/L (3.4-5.0); Sodium 134 mmol/L (137-145)
[2023-11-24 21:58] LABS: Lactic Acid Reflex 1.4 mmol/L (0.7-2.0)
[2023-11-24 21:58] LABS: Acetaminophen < 10 ug/mL (10-30); Ethanol < 10 mg/dL (<10); Salicylate < 1.0 mg/dL (2-20)
[2023-11-24 22:02] LABS: Partial Thromboplastin Time 25.9 Seconds (22.3-36.8); Prothrombin Time 13.7 Seconds (11.1-14.7)
[2023-11-24 22:09] LABS: Troponin I < 0.012 ng/mL (0.000-0.034)
[2023-11-24 22:51] LABS: Barbiturate Screen Urine Negative (Negative); Benzodiazepines Screen Urine Positive (Negative)
[2023-11-24 22:55] LABS: Amphetamine Screen Urine Negative (Negative); Cannabinoid Screen Urine Negative (Negative); Cocaine Screen Urine Negative (Negative); Methadone Screen Urine Negative (Negative); Phencyclidine Screen Urine Negative (Negative)
[2023-11-24 23:04] LABS: Opiate Screen Urine Negative (Negative)
[2023-11-24 23:18] LABS: Add Urine Microscopic? YES; Appearance Urine Cloudy (Clear); Bacteria Urine None Seen /hpf; Bilirubin Urine Negative (Negative); Blood Urine Negative (Negative); Color Urine Dark Yellow (Yellow); Glucose Urine UA Negative (Negative); Ketones Urine 1+ mg/dL (Negative); Leukocyte Esterase Ur Trace LEU/UL (Negative); Need Manual Microscopic Reviewed; Nitrate Urine Negative (Negative); Non Pathogenic Casts >20; Protein Urine 2+ mg/dL (Negative); Specific Grav Ur 1.026 (1.001-1.035); Squamous Epithelial Cell Urine Few /hpf (Few); Urobilinogen Urine 0.2 mg/dL (<2.0); WBC Urine 0-5 /hpf (0-3); pH Urine 5.5 (5.0-9.0)
--- NOTE | 2023-11-24 23:30 | PC.NURSE ---
Report received from ROB Buchanan. Assumed care of patient at this time.
[2023-11-24] MEDS: HYDROcodone/acetaminophen (*CRX) 5-325 MG TABLET 1 TAB PO (23:57)
[2023-11-25 00:04] VITALS: PULSE 91; RESP 20; O2SAT 99
== END 2023-11-25 00:14 | disposition home or self-care (01) ==
PROVIDERS: Emergency Provider Student in an Organized Health Care Education/Training Program; PCP Clinical Nurse Specialist
DX: R40.4 Transient alteration of awareness (principal); I10 Essential (primary) hypertension; E11.9 Type 2 diabetes mellitus without complications; E78.5 Hyperlipidemia, unspecified; E66.01 Morbid (severe) obesity due to excess calories; Z68.42 Body mass index [BMI] 45.0-49.9, adult; F41.9 Anxiety disorder, unspecified; F10.20 Alcohol dependence, uncomplicated; Y90.0 Blood alcohol level of less than 20 mg/100 ml; F32.A Depression, unspecified; Z98.84 Bariatric surgery status; Z86.0101 Personal history of adenomatous and serrated colon polyps; Z87.891 Personal history of nicotine dependence; Z79.4 Long term (current) use of insulin; Z79.84 Long term (current) use of oral hypoglycemic drugs; Z79.85 Long-term (current) use of injectable non-insulin antidiabetic drugs; Z79.899 Other long term (current) drug therapy; R94.31 Abnormal electrocardiogram [ECG] [EKG]
CPT/HCPCS: 36415; 70450; 80053; 80143; 80179; 80307; 81001; 82077; 82550; 82948; 83605; 84443; 84484; 85025; 85610; 85730; 93005; 96360; 99284; A9270; J7030

== ENCOUNTER 2024-01-16 14:00 | Outpatient (RCR) | payer OTHER, SELFPAY ==
--- NOTE | 2023-12-23 14:25 | PTOPEVAL1 ---
Assessment and note entered by Shadi Crawley, PT, DPT Evaluation Information Assessment Status Evaluation Diagnosis low back pain ICD-10 Condition Codes (PT) Pain in low back M54.50 Subjective Information Pt reports chronic L sided lower back pain, without a known cause. He states in August or September he noted an increase from his usual pain, also without a known cause. He states at times it feels like his L hip joint and other times it feels like sciatic pain, he states the pain and the sensations with it fluctuate. He states he was given a muscle relaxer and it did not seem to help. Pt states he has lost 30lb since September, he states at times he is too nauseous d/t the pain to eat. Pt is using a cane to walk and has been since September. Pt does not work, he states he enjoys sitting and watching TV. Pt states he cannot sleep well d/t pain. Pt reports 10-15 falls since his pain started, did not have any falls prior to August. Reported Pain Level Pain Score 2: Self Report Assessment PT Clinical Summary Pt presents to therapy today for his initial evaluation with a diagnosis of low back pain. Today he demonstrates decreased active trunk motion and passive LE motion, both limited by pain . He demonstrates a decreased gait speed and requires an AD d/t his pain. He demonstrates decreased functional mobility when compared to his prior level of function. Skilled therapy services are indicated to address the deficits noted above , to manage pain, and to return to prior level of function. Plan of Care Interventions Electrical Stimulation,Gait Training,Hot Pack/Cold Pack,Manual Therapy,Neuro Re-education,Patient/ Caregiver Educati,Therapeutic Activities, Therapeutic Exercise PT Services Indicated Yes Treatment Frequency and 2x/wk for 10 visits Duration These treatments will address the objective and functional deficits as defined above. The patient will be advanced safely and appropriately in order for the patient to progress towards his/her prior level of function. Additional exercises will be introduced and as well as a comprehensive home exercise program upon discharge, if needed, ?to ensure carryover of functional gains achieved in the clinic. This treatment plan has been reviewed and agreement upon by the patient.
--- NOTE | 2023-12-23 14:25 | OPREHPOC ---
Outpatient Therapy Plan of Care This is a Multidisciplinary Plan of Care that may contain components documented by all disciplines (PT, OT, and ST.) PT Problem 1 PT Problem #1 Knowledge Deficit PT Goal 1 Goal / Goal Update Pt to be IND with issued HEP Target Visit 10 PT Problem 2 PT Problem #2 Pain PT Goal 1 Goal / Goal Update 1. Pt to report back pain no greater than 4/10 in the last week. 2. Pt to report 75% improvement in overall symptoms. Target Visit 10 PT Problem 3 PT Problem #3 Impaired Gait PT Goal 1 Goal / Goal Update 1. Pt to return to ambulation without an AD. 2. Pt to improve 2 min walk distance from 210ft to 300ft. Target Visit 10 PT Problem 4 PT Problem #4 Impaired Safety Awareness PT Goal 1 Goal / Goal Update 1. Pt to decline any fall in the last month. Target Visit 10
--- NOTE | 2023-12-31 15:43 | PCPTNOTE ---
Patient called & cancelled scheduled appointment this date due to not feeling well.
--- NOTE | 2024-01-03 07:58 | PCPTNOTE ---
Patient was canceled 01/02/24 due to therapist being out with illness.
--- NOTE | 2024-01-16 14:34 | PCPTNOTE ---
Patient arrived to therapy this date stating he was not feeling well. Patient appeared to be confused and unable to string to together a full sentence. Patient reports he did not want to do therapy this date. Patient stated he did not know what was wrong but wanted to be seen by his doctor. Patient was walked upstairs to then be seen by his doctor.
--- NOTE | 2024-01-21 10:15 | PCPTNOTE ---
Patient called and left voicemail stating he wanted all his remaining appointments canceled out for physical therapy.
--- NOTE | 2024-02-11 13:39 | PTOPDC ---
Assessment and note entered by Shadi Crawley, PT, DPT Evaluation Information Assessment Status Discharge - Pt Not Present Diagnosis low back pain ICD-10 Condition Codes (PT) Pain in low back M54.50 Subjective Information Pts family called on 01/19/24 to cancel all of pts remaining appointments. Called and LVM with follow up instructions and have not heard from pt or family. Assessment PT Clinical Summary D/c at this time per attendance policy, will need new order if additional therapy is needed. Plan of Care PT Services Indicated Yes
== END 2024-02-13 08:31 | disposition home or self-care (01) ==
LOC: ANHGOSHPT 14:00
PROVIDERS: PCP Clinical Nurse Specialist; Visit Provider Nurse Practitioner
DX: M54.50 Low back pain, unspecified (principal)
CPT/HCPCS: 97014; 97110; 97161; G0283

== ENCOUNTER 2024-03-09 12:50 | Outpatient (NON) | payer OTHER, SELFPAY ==
[2024-03-09 16:27] LABS: Add Urine Microscopic? NO; Appearance Urine Clear (Clear); Bilirubin Urine Negative (Negative); Blood Urine Negative (Negative); Color Urine Yellow (Yellow); Glucose Urine UA Negative (Negative); Ketones Urine Trace mg/dL (Negative); Leukocyte Esterase Ur Negative LEU/UL (Negative); Nitrate Urine Negative (Negative); Protein Urine Negative (Negative); Urobilinogen Urine 0.2 mg/dL (<2.0); pH Urine 5.5 (5.0-9.0)
[2024-03-09 17:00] LABS: Creatinine Urine 75.4 mg/dL
[2024-03-09 17:03] LABS: MALB Creatinine Ratio 16.2 mg/g (0-30); Microalbumin Urine Random 12.2 mg/L (0-16.7)
== END 2024-03-09 12:51 | disposition home or self-care (01) ==
LOC: ANHGOSHLAB 12:52
PROVIDERS: Visit Provider Clinical Nurse Specialist
DX: R41.0 Disorientation, unspecified (principal); E11.9 Type 2 diabetes mellitus without complications; Z79.4 Long term (current) use of insulin
CPT/HCPCS: 81003; 82043

== ENCOUNTER 2024-06-03 08:12 | Outpatient (CLI) | payer OTHER, SELFPAY ==
--- OUTSIDE RECORDS SUMMARY | 2024-06-03 08:33 | XMS_ITS | Referral Summary ---
Author Organization [facility] Address [address] [place] [address] Care Team Providers Care Broadcast Operations Engineer Name Role Phone Niki Hanna NP Primary Care Provider [phone] Allergies Active Allergy Reactions Criticality Noted Date Comments Musa Inhibitors Cough Low 08/28/2016 Lisinopril Other (See comments) Medium Reaction: Cough, , Medications aspirin (ASPIR-81) 81 mg tablet take 1 tablet by oral route every day 0 0 4 Active atorvastatin (LIPITOR) 40 mg tablet take 1 tablet by oral route every day 0 0 4 Active insulin glargine (LANTUS) 100 unit/mL injection inject 20 by subcutaneous route as per insulin protocol 0 vial 0 4 Active Additional Information Patient taking differently: (No dose reported), subcutaneous Daily, Indications: type 2 diabetes mellitus, 30-50 Units daily, Reported on 05/09/2017 ferrous fumarate 324 mg (106 mg iron) tablet 0 0 4 Active Additional Information Patient taking differently: 29 mg oral Daily, Reported on 05/09/2017 tamsulosin (FLOMAX) 0.4 mg capsule,extende d release 24hr take 1 capsule by oral route every day 1/2 hour following the same meal each day 0 0 4 Active losartan (COZAAR) 100 mg tablet 7 Active traZODone (DESYREL) 100 mg tablet Take 100 mg by mouth nightly. 7 Active MULTIVITAMIN ORAL Take 1 tablet by mouth 4 (four) times a day. Active ALPRAZolam (XANAX) 1 mg tablet Take 1 tablet (1 mg total) by mouth nightly as needed for anxiety. 30 tablet 8 Active hydrALAZINE (APRESOLINE) 50 mg tabletIndicatio ns:hypertension Take 1 tablet (50 mg total) by mouth every 8 (eight) hours. 90 tablet 1 8 Active metoprolol XL (TOPROL-XL) 100 mg 24 hr tablet Take 1 tablet (100 mg total) by mouth daily. 30 tablet 1 8 Active cephalexin (KEFLEX) 500 mg capsule Take 1 capsule by mouth 3 (three) times a day 9 Active Active Problems Problem Noted Date Diagnosed Date Screen for colon cancer 06/16/2018 Overview (06/16/2018): Added automatically from request for surgery Persistent depressive disorder 07/04/2017 Assessment & Plan (07/04/2017 12:47 PM CDT): Chronic, stable. Continue Wellbutrin XL 150 mg p.o. q.day CHRISTOPHE (generalized anxiety disorder) 07/04/2017 Assessment & Plan (07/04/2017 12:47 PM CDT): Chronic stable. No change to treatment. Alcohol dependence 06/24/2017 Essential hypertension 05/10/2017 Assessment & Plan (05/10/2017 6:04 AM CDT): Blood pressures are elevated Patient states that blood pressures were running on the higher side with persistent tachycardia Will increase the dose of the beta-coni to metoprolol 100 mg daily Acute encephalopathy 05/09/2017 Assessment & Plan (05/10/2017 6:01 AM CDT): Acute encephalopathy less likely due to encephalitis Patient was treated empirically with acyclovir dexamethasone and Rocephin Will continue with antibiotics for now pending septic workup results Continue with IV fluid Trend CBC and BMP Electrolyte replacement per pharmacy protocol GI and DVT prophylaxis Lactic acidosis 05/09/2017 Assessment & Plan (05/10/2017 5:55 AM CDT): Repeat lactic acid levels had been improving Patient currently on IV fluids with bicarb Will repeat lactate levels Trend CBC Alcohol intoxication with delirium 05/09/2017 Assessment & Plan (05/10/2017 5:58 AM CDT): Blood alcohol levels are elevated. Altered mental status likely due to alcohol intoxication Septic workup is still in progress CSF results reviewed -blood cell count less than 3-Lasix likely encephalitis Diabetes 05/09/2017 Assessment & Plan (05/10/2017 5:56 AM CDT): Hold oral hypoglycemics Start on Levemir and medium sliding scale corrective dose insulin Osteoarthritis of lumbar spine with myelopathy 0 08/28/2016 Pain in the coccyx 09/30/2015 Overview (05/18/2016): Acute coccygeal pain Chondromalacia of patella 08/19/2015 Overview (05/18/2016): Chondromalacia patellae of left knee Closed fracture of lateral malleolus 01/27/2014 Overview (05/18/2016): Closed fracture of lateral malleolus Acute confusional state Social History Tobacco Use Types Packs/Day Years Used Date Smoking Tobacco: Former Smokeless Tobacco: Former Alcohol Use Standard Drinks/Week Comments Yes 0 (1 standard drink = 0.6 oz pur e alcohol) occasional Personal Safety Answer Date Recorded Have you ever been in or are you currently in a harmful physical or emotional relationship or is someone making you feel afraid or unsafe? Denies 01/16/2024 Sex and Gender Information Value Date Recorded Sex Assigned at Not on file Legal Sex Male 11:26 PM QUALITY LIAISON Gender Identity Not on file Sexual Orientation Not on file Last Filed Vital Signs Vital Sign Reading Time Taken Comments Blood Pressure 147/102 01/16/2024 11:30 PM QUALITY LIAISON Pulse 95 01/16/2024 11:30 PM QUALITY LIAISON Temperature 36.1 C (97 F) 01/16/2024 4:35 PM QUALITY LIAISON Respiratory Rate 18 01/16/2024 7:00 PM QUALITY LIAISON Oxygen Saturation 96% 01/16/2024 11:30 PM QUALITY LIAISON Inhaled Oxygen Concentration - - Weight 126.6 kg (279 lb) 01/16/2024 4:35 PM QUALITY LIAISON Height 167.6 cm (5' 6 ) 01/16/2024 4:35 PM QUALITY LIAISON Body Mass Index 45.03 01/16/2024 4:35 PM QUALITY LIAISON Plan of Treatment Not on file Procedures Procedure Name Priority Date/Time Associated Diagnosis Comments EGFR STAT 01/16/2024 4:39 PM QUALITY LIAISON COLONOSCOPY 06/26/2018 9:35 AM CDT HEMOGLOBIN A1C Routine 03/04/2018 3:31 PM QUALITY LIAISON LIPID PANEL Routine 03/04/2018 3:31 PM QUALITY LIAISON PSA DIAGNOSTIC Routine 03/04/2018 3:31 PM QUALITY LIAISON from Last 3 Months or Most Recently Relevant to Health Maintenance Results * eGFR (01/16/2024 4:39 PM QUALITY LIAISON) eGFR >90 >=60 mL/min/1. 73 m2 Comment: Interpretive Data Reference Interval Normal >/= 90 mL/min/1.73m2 Mildly decreased* 60 - 89 mL/min/1.73m2 Mildly to moderately decreased 45 - 59 mL/min/1.73m2 Moderately to severely decreased 30 - 44 mL/min/1.73m2 Severely decreased 15 - 29 mL/min/1.73m2 Kidney Failure < 15 mL/min/1.73m2 *Relative to young adult level Estimated glomerular filtration rate is determined by the 2020 CKD-EPI equation recommended by the National Kidney Foundation (A Unifying Approach to GFR Estimation: Recommendations of the NKF-ASK Task Force on Reassessing the Inclusion of Race in Diagnosing Kidney Disease, JASN 2020). The CKD-EPI equation should not be used for patients with unstable renal function and has not been validated in children and those over 70. Current interpretive data was last reviewed 2020. Blood 01/16/2024 4:39 PM QUALITY LIAISON 01/16/2024 4:41 PM QUALITY LIAISON us Daryl Gregory MD LAB BLOOD ORDERABLES Final Re sult [facility] [address] Department [place] [address] * COLONOSCOPY (06/26/2018 9:35 AM CDT) Anatomical Region Laterality Modality Other Narrative Procedure Note Mason Viramontes MD - 06/26/2018 9:35 AM CDT [facility] Endoscopy Lab Patient Name: Bonifacio Delaney Procedure Date: 06/26/2018 9:35 AM Date of : 1965 Admit Type: Outpatient Age: 52 Gender: Male Note Status: Finalized Attending MD: Mason Viramontes M.D. Procedure Date: 06/26/2018 Procedure: Colonoscopy Indications: Screening for colorectal malignant neoplasm Providers: Mason Viramontes M.D., Kings Tanner (AnesthesiaStaff), Lee Parker RN Referring MD: Emmett Fairbanks M.D. Medicines: Monitored Anesthesia Care Complications: No immediate complications. Estimated blood loss: Minimal. Estimated Blood Loss: Estimated blood loss was minimal. Procedure: Pre-Anesthesia Assessment: - Prior to the procedure, a History and Physical was performed, and patient medications and allergieswere reviewed. The patient is competent. The risks and benefits of the procedure and the sedation optionsand risks were discussed with the patient. All questions were answered and informed consent was obtained. Patient identification and proposed procedure were verified by the physician, the nurse and the thermal cutting machine operator in the endoscopy suite. Mental Status Examination: alert and oriented. Airway Examination: normal oropharyngeal airway and neck mobility. Respiratory Examination: clear to auscultation. CV Examination: normal. Prophylactic Antibiotics: The patient does not require prophylactic antibiotics. Prior Anticoagulants: The patient has taken aspirin, last dose was 7 days prior to procedure. ASA Grade Assessment: III - A patient with severe systemic disease. After reviewing the risks and benefits, the patient was deemed in satisfactory condition toundergo the procedure. The anesthesia plan was to usemonitored anesthesia care (MAC). Immediately prior to administration of medications, the patient was re-assessed for adequacy to receive sedatives. The heart rate, respiratory rate, oxygen saturations,blood pressure, adequacy of pulmonary ventilation, and response to care were monitored throughout the procedure. The physical status of the patient was re-assessed after the procedure. - The risks and benefits of the procedure and the sedation options and risks were discussed with the patient. All questions were answered and informed consent was obtained. After I obtained informed consent, the scope waspassed under direct vision. Throughout the procedure, the patient's blood pressure, pulse, and oxygensaturations were monitored continuously. The scope was passedunder direct vision. The Colonoscope was introducedthrough the anus and advanced to the the cecum, identifiedby appendiceal orifice and ileocecal valve. The colonoscopy was performed without difficulty. The patient tolerated the procedure well. The quality of the bowel preparation was fair. The bowelpreparation used was SUPREP. Findings: A 12 mm polyp was found in the mid ascending colon. The polyp was removed with a piecemeal technique using a hot snare. Resection and retrieval were complete. Estimated blood loss was minimal. A 8 mm polyp was found in the splenic flexure. The polyp was removed with a hot snare. Resection and retrieval were complete. Estimatedblood loss was minimal. Multiple diverticula were found in the sigmoid colon and descending colon. Three polyps were found in the descending colon. The polyps were 8 to15 mm in size. These polyps were removed with a hot snare. Resection and retrieval were complete. Estimated blood loss was minimal. Two polyps were found in the sigmoid colon. The polyps were 6 to 8 mmin size. These polyps were removed with a hot snare. Resection and retrieval were complete. Estimated blood loss was minimal. The exam was otherwise without abnormality on direct and retroflexion views. Impression: - Preparation of the colon was fair. - One 12 mm polyp in the mid ascending colon,removed piecemeal using a hot snare. Resected andretrieved. - One 8 mm polyp at the splenic flexure, removedwith a hot snare. Resected and retrieved. - Diverticulosis in the sigmoid colon and in the descending colon. - Three 8 to 15 mm polyps in the descending colon, removed with a hot snare. Resected and retrieved. - Two 6 to 8 mm polyps in the sigmoid colon, removed with a hot snare. Resected and retrieved. - The examination was otherwise normal on direct and retroflexion views. Recommendation: - Await pathology results. - No aspirin, ibuprofen, naproxen, or other non-steroidal anti-inflammatory drugs for 2 weeksafter polyp removal. - Repeat colonoscopy in 1 year for surveillanceafter piecemeal polypectomy. Procedure Code(s): --- Professional --- 83122, Colonoscopy, flexible; with removal oftumor(s), polyp(s), or other lesion(s) by snare technique Diagnosis Code(s): --- Professional --- Z12.11, Encounter for screening for malignantneoplasm of colon D12.2, Benign neoplasm of ascending colon D12.3, Benign neoplasm of transverse colon (hepatic flexure or splenic flexure) D12.4, Benign neoplasm of descending colon D12.5, Benign neoplasm of sigmoid colon K57.30, Diverticulosis of large intestine without perforation or abscess without bleeding CPT copyright 2017 [place] [employer]. All rights reserved. The codes documented in this report are preliminary and upon chronic care nurse reviewmay be revised to meet current compliance requirements. Dr. Mason Viramontes MD Mason Viramontes M.D. 06/26/2018 10:58:20 AM This report has been electronically signed by the physician. Number of Addenda: 0 Note Initiated On: 06/26/2018 9:35 AM Mason Viramontes MD ENDOSCOPY PROCEDURES Final R esult * PSA diagnostic (03/04/2018 3:31 PM QUALITY LIAISON) PSA-Total 2.27 <=3.90 ng/mL [facility] Comment: Interpretive Data AGE SEX REFERENCE INTERVAL 0 minutes-150 years Female None 0 minutes-49 years Male None 50-59 years Male 0-3.90 60-69 years Male 0-5.40 70-79 years Male 0-6.20 80-150 years Male 0-6.20 Current interpretive data last revised 2018. Blood specimen (specimen) 03/04/2018 3:31 PM QUALITY LIAISON 03/04/2018 6:41 PM QUALITY LIAISON Narrative [facility] - 03/04/2018 8:13 PM QUALITY LIAISON Bekah Aviles NP LAB BLOOD ORDERABLES Final Res ult Performing Organization Address [facility] Co de Phone Number [facility] [address] Department [place] [address] * (ABNORMAL) Hemoglobin A1c (03/04/2018 3:31 PM QUALITY LIAISON) Hgb A1C 5.8(H) 4.0 - 5.6 % [facility] Estimated Average Glucose 120 mg/dL [facility] Comment: The ADA recommends reporting an estimated Average Glucose (eAG) with all Hemoglobin A1c results using the equation derived from a study of 507 normal and diabetic adults. Minority populations were underrepresented and children were not included. (Diabetes Care 31:5268-7583, 2008). The eAG is not equivalent to a fasting glucose. Blood specimen (specimen) 03/04/2018 3:31 PM QUALITY LIAISON 03/04/2018 6:41 PM QUALITY LIAISON Narrative [facility] - 03/04/2018 9:46 PM QUALITY LIAISON Bekah Aviles NP LAB BLOOD ORDERABLES Final Res ult [facility] [address] Department [place] [address] * Lipid panel (03/04/2018 3:31 PM QUALITY LIAISON) Cholesterol 140 30 - 199 mg/dL [facility] Comment: Interpretive Data Ages < or = 19 years Acceptable: <170 mg/dL Borderline high: 170-199 mg/dL High: >or= 200 mg/dL Ages > or = 20 years Desirable: <200 mg/dL Borderline high: 200-239 mg/dL High: >or= 240 mg/dL Literature References: 1. Expert Panel on Integrated Guidelines for Cardiovascular Health and Risk Reduction in Children and Adolescents. Pediatrics 2011;128:S213 2. NCEP Expert Panel. Circulation 2004;110:227 Current Interpretive Data was last revised on 2017. Triglycerides 78 <=149 mg/dL [facility] Comment: Interpretive Data Ages < or = 9 years Acceptable: <75 mg/dL Borderline high: 75-99 mg/dL High: >or= 100 mg/dL Ages 10 to 20 years Acceptable: <90 mg/dL Borderline high: 90-129 mg/dL High: >or= 130 mg/dL Ages > or = 20 years Desirable: <150 mg/dL Borderline high: 150-199 mg/dL High: 200-499 mg/dL Very high: >or= 499 mg/dL Literature References: 1. Expert Panel on Integrated Guidelines for Cardiovascular Health and Risk Reduction in Children and Adolescents. Pediatrics 2011;128:S213 2. NCEP Expert Panel. Circulation 2004;110:227 Current Interpretive Data was last revised on 2017. HDL 59 >=40 mg/dL [facility] Comment: Interpretive Data Ages < or = 19 years Acceptable: >45 mg/dL Borderline low: 40-45 mg/dL Low: <40 mg/dL Ages > or = 20 years Desirable: >or= 60 mg/dL Low: <40 mg/dL Literature References: 1. Expert Panel on Integrated Guidelines for Cardiovascular Health and Risk Reduction in Children and Adolescents. Pediatrics 2011;128:S213 2. NCEP Expert Panel. Circulation 2004;110:227 Current Interpretive Data was last revised on 2017. LDL, calculated 65 <=129 mg/dL [facility] Comment: Interpretive Data Ages < or = 19 years Acceptable: <110 mg/dL Borderline high: 110-129 mg/dL High: >or= 130 mg/dL Ages > or = 20 years Optimal: <100 mg/dL Near optimal: 100-129 mg/dL Borderline high: 130-159 mg/dL High: >160 mg/dL Literature References: 1. Expert Panel on Integrated Guidelines for Cardiovascular Health and Risk Reduction in Children and Adolescents. Pediatrics 2011;128:S213 2. NCEP Expert Panel. Circulation 2004;110:227 Current Interpretive Data was last revised on 2017. Non-HDL Cholesterol 81 mg/dL [facility] Comment: Interpretive Data Ages < or = 19 years Acceptable: <120 mg/dL Borderline high: 120-144 mg/dL High: >145 mg/dL Ages > or = 20 years When triglycerides are >200 mg/dL, Non-HDL cholesterol is a secondary target of therapy with treatment goals that are 30 mg/dL greater than the LDL cholesterol target. Literature References: 1. Expert Panel on Integrated Guidelines for Cardiovascular Health and Risk Reduction in Children and Adolescents. Pediatrics 2011;128:S213 2. NCEP Expert Panel. Circulation 2004;110:227 Current Interpretive Data was last revised on 2017. Chol/HDL ratio 2 [facility] Blood specimen (specimen) 03/04/2018 3:31 PM QUALITY LIAISON 03/04/2018 6:41 PM QUALITY LIAISON Narrative [facility] - 03/04/2018 8:25 PM QUALITY LIAISON Bekah Aviles NP LAB BLOOD ORDERABLES Final Res ult [facility] [address] Department [place] [address] from Last 3 Months or Most Recently Relevant to Health Maintenance [facility] [employer] Address: [facility] [address] [place] [address] [facility] CARE OTHER [facility] Advance Directives For more information, please contact: [phone] * Full Code (Latest Code Status on File) Date Activated Date Inactivated Comments 05/09/2017 3:33 PM 05/11/2017 5:06 PM Care Teams Broadcast Operations Engineer Relationship Specialty Start Date End Date Niki Hanna NP [facility] [address] [address] PCP - General Cardiovascular Disease 01/16/24
--- OUTSIDE RECORDS SUMMARY | 2024-06-03 08:33 | XMS_ITS | Clinical Summary ---
Author Organization [facility] Address [address] [place] [address] Phone Care Team Providers Care Shaft Repairer Name Role Phone Unavailable Primary Care Provider Unavailabl e Active Problems Problem Noted Date Diagnosed Date Alcohol use disorder, severe, in early remission 07/22/2017 Mild early onset dysthymic d isorder, in partial remission, with atypical features, with intermittent major depressive episodes, with current episode 07/22/2017 Social History Tobacco Use Types Packs/Day Years Used Date Smoking Tobacco: Former Cigarettes Q uit: 07/22/2002 Smokeless Tobacco: Never Alcohol Use Standard Drinks/Week Comments No 0 (1 standard drink = 0.6 oz pur e alcohol) 30 days sober Sexually Active Control Partners Comments Not Currently Sex and Gender Information Value Date Recorded Sex Assigned at Not on file Legal Sex Male 11:30 AM CDT Gender Identity Not on file Sexual Orientation Not on file Plan of Treatment Health Maintenance Due Date Last Done Comments Hepatitis C Virus (HCV) Screening 1965 TdaP Immunization 1965 Hepatitis B Immunization (1 of 3 - 19+ 3-dose series) 08/31/1983 Pneumococcal Immunization (5 0+ years) (1 of 2 - PCV) 08/31/1983 Colonoscopy 2009 Colorectal Cancer Screening 2009 Cologuard 2014 Immunochemical Fecal Occult Blood 2014 Zoster Immunization (1 of 2) 2014 Influenza Immunization (#1) 2023 10/29/2015 SARS-COV-2 Immunization ( season) 2023 02/07/2021, 06/05/2020, 05/14/2020 Respiratory Syncytial Virus (RSV) Immunization (Adult) (1 - 1-dose 75+ series) 08/31/2039 Meningococcal Immunization (ACWY) Aged Out No longer eligible b ased on patient's age to complete this topic Rotavirus Immunization Aged Out No lo nger eligible based on patient's age to complete this topic Insurance [employer]
--- OUTSIDE RECORDS SUMMARY | 2024-06-03 08:33 | XMS_ITS | Clinical Summary ---
Author Organization [facility] Address [address] [place] [address] Care Team Providers Care Equipment Maintenance Technician Name Role Phone Niki Hanna NP Primary Care Provider Allergies Active Allergy Reactions Criticality Noted Date [...] fracture of lateral malleolus Acute confusional state Surgical History Surgery Date Site/Laterality Comments APPENDECTOMY GASTRIC BYPASS CARPAL TUNNEL RELEASE Bilateral GASTRIC BYPASS Medical History Medical History Date Comments Type 2 diabetes mellitus (HCC) D iabetes type 2; Comments: TIFFANY 01/15/2014 - Hyperlipidemia Hyperlipidemia; Comments: Teofilo 01/15/2014 - Hypertension Family History Medical History Relation Name Comments Lung cancer Other 1 Family history of Cancer, lung; Ovarian cancer Other 2 Family histor y of Cancer, ovarian; Relation Name Status Comments Other 1 Other 2 Social History Tobacco Use Types Packs/Day Years [...] on file Legal Sex Male 11:26 PM DRY WALL INSTALLER Gender Identity Not on file Sexual Orientation Not on file Obstetrics History Last Filed Vital Signs Vital Sign Reading Time Taken Comments Blood Pressure 147/102 01/16/2024 11:30 PM DRY WALL INSTALLER Pulse 95 01/16/2024 11:30 PM DRY WALL INSTALLER Temperature 36.1 C (97 F) 01/16/2024 4:35 PM DRY WALL INSTALLER Respiratory Rate 18 01/16/2024 7:00 PM DRY WALL INSTALLER Oxygen Saturation 96% 01/16/2024 11:30 PM DRY WALL INSTALLER Inhaled Oxygen Concentration - - Weight 126.6 kg (279 lb) 01/16/2024 4:35 PM DRY WALL INSTALLER Height 167.6 cm (5' 6 ) 01/16/2024 4:35 PM DRY WALL INSTALLER Body Mass Index 45.03 01/16/2024 4:35 PM DRY WALL INSTALLER Plan of Treatment Health Maintenance Due Date Last Done Comments Albumin Creatinine Ratio, Urine 1965 Depression Screening 1965 Hepatitis C Screening 1965 Dilated Eye Exam 1965 Foot Exam 1965 DTaP/Tdap/Td Vaccine (1 - Tdap) 08/31/1975 Hepatitis B Screening 1982 Regular Well Visit/Exam 18-64 1982 Pneumococcal vaccine <65 (1 of 2 - PCV) 08/31/1983 Hemoglobin A1C 09/01/2018 03/04/2018, 05/14/2017 Lipid Panel 03/04/2019 03/04/2018, 04/04/2017, 03/30/2015, Additional history exists Prostate Cancer Screening-PSA 03/04/2020 03/04/2018, 05/14/2017 eGFR 01/15/2025 01/16/2024, 02/12, 05/11/2017, Additional history exists Colon Cancer Screening-Colonoscopy 06/26/2028 06/26/2018 Colon Cancer Screening-CT Colonography Discontinued 06/26/2018 Colon Cancer Screening-DNA Stool Discontinued 06/27/19 Colon Cancer Screening-FIT Discontinued 06/26/2018 Colon Cancer Screening-Sigmoidoscopy Discontinued 06/26/2018 Zoster Vaccine Completed 02/12/2022, 11/22/2021 Covid-19 Vaccine Completed 12/27/2023, , 02/12/2022, Additional history exists Influenza Vaccine Completed 12/27/2023, , 11/22/2021, Additional history exists Procedures Procedure Name Priority Date/Time Associated Diagnosis Comments EGFR STAT 01/16/2024 4:39 PM DRY WALL INSTALLER COLONOSCOPY 06/26/2018 9:35 AM CDT HEMOGLOBIN A1C Routine 03/04/2018 3:31 PM DRY WALL INSTALLER LIPID PANEL Routine 03/04/2018 3:31 PM DRY WALL INSTALLER PSA DIAGNOSTIC Routine 03/04/2018 3:31 PM DRY WALL INSTALLER from Last 3 Months or Most Recently Relevant to Health Maintenance Results * eGFR (01/16/2024 4:39 PM DRY WALL INSTALLER) eGFR >90 >=60 mL/min/1. 73 m2 Comment: [...] of Race in Diagnosing Kidney Disease, JASN 202). The CKD-EPI equation should not be used for patients with unstable renal function and has not been validated in children and those over 70. Current interpretive data was last reviewed 2020. Blood 01/16/2024 4:39 PM DRY WALL INSTALLER 01/16/2024 4:41 PM DRY WALL INSTALLER us Daryl Gregory MD LAB BLOOD ORDERABLES Final Re sult [facility] [id number] [facility]. Department of [employer] [place], [place] [id number] * COLONOSCOPY (06/26/2018 9:35 AM CDT) Anatomical Region Laterality Modality Other Narrative Procedure Note Masno Viramontes MD - 06/26/2018 9:35 AM CDT [facility] Endoscopy Lab Patient Name: Jewell Delaney Procedure Date: 06/26/2018 9:35 AM Date of : 1965 Admit Type: Outpatient Age: 52 Gender: Male Note Status: Finalized Attending MD: Mason Viramontes M.D. Procedure Date: 06/26/2018 Procedure: Colonoscopy Indications: Screening for colorectal malignant neoplasm Providers: Mason Viramontes M.D., [facility]anner ([facility] Lee Parker RN Referring MD: Emmett Fairbanks [...] by the physician, the nurse and the can runner in the endoscopy suite. Mental Status Examination: [...] piecemeal polypectomy. Procedure Code(s): --- Professional --- 70127, Colonoscopy, flexible; with removal oftumor(s), polyp(s), or [...] or abscess without bleeding CPT copyright 2017 [employer]. All rights reserved. The codes documented in this report are preliminary and upon emt paramedic reviewmay be revised to meet current compliance requirements. Dr. Mason Viramontes MD Mason Viramontes M.D. 06/26/2018 10:58:20 AM This report has been electronically signed by the physician. Number of Addenda: 0 Note Initiated On: 06/26/2018 9:35 AM Mason Viramontes MD ENDOSCOPY PROCEDURES Final R esult * PSA diagnostic (03/04/2018 3:31 PM DRY WALL INSTALLER) Pathologist [facility] PSA-Total 2.27 <=3.90 ng/mL [facility] Comment: Interpretive Data AGE SEX REFERENCE INTERVAL 0 minutes-150 years Female None 0 minutes-49 years Male None 50-59 years Male 0-3.90 60-69 years Male 0-5.40 70-79 years Male 0-6.20 80-150 years Male 0-6.20 Current interpretive data last revised 2018. Blood specimen (specimen) 03/04/2018 3:31 PM DRY WALL INSTALLER 03/04/2018 6:41 PM DRY WALL INSTALLER Narrative [facility] - 03/04/2018 8:13 PM DRY WALL INSTALLER Bekah Aviles NP LAB BLOOD ORDERABLES Final Res ult Performing Organization Address [facility] de Phone Number [facility] [address] [place] [address] * (ABNORMAL) Hemoglobin A1c (03/04/2018 3:31 PM DRY WALL INSTALLER) [facility] Hgb A1C 5.8(H) 4.0 - 5.6 % CARLOS Estimated Average Glucose 120 mg/dL [facility]LOS Comment: The ADA recommends reporting an estimated Average Glucose (eAG) with all Hemoglobin A1c results using the equation derived from a study of 507 normal and diabetic adults. Minority populations were underrepresented and children were not included. (Diabetes Care 31:9397-1338, 2008). The eAG is not equivalent to a fasting glucose. Blood specimen (specimen) 03/04/2018 3:31 PM DRY WALL INSTALLER 03/04/2018 6:41 PM DRY WALL INSTALLER Narrative [facility] - 03/04/2018 9:46 PM DRY WALL INSTALLER Bekah Aviles NP LAB BLOOD ORDERABLES Final Res ult Performing Organization Address [facility] [[email or web address]] Co de Phone Number [facility] [address] [employer] [place], [place] [id number] * Lipid panel (03/04/2018 3:31 PM DRY WALL INSTALLER) [facility] Cholesterol 140 30 - 199 mg/dL CARLOS Comment: Interpretive Data Ages < [...] on 2017. Triglycerides 78 <=149 mg/dL [facility] Comment: Interpretive Data Ages < [...] on 2017. HDL 59 >=40 mg/dL [facility] Comment: Interpretive Data Ages < [...] 2017. LDL, calculated 65 <=129 mg/dL [facility]OS Comment: Interpretive Data Ages < [...] on 2017. Non-HDL Cholesterol 81 mg/dL [facility]LOS GUTIERREZ Comment: Interpretive Data Ages [...] [facility]LOS Blood specimen (specimen) 03/04/2018 3:31 PM DRY WALL INSTALLER 03/04/2018 6:41 PM DRY WALL INSTALLER Narrative [facility] - 03/04/2018 8:25 PM DRY WALL INSTALLER us Bekah Aviles NP LAB BLOOD ORDERABLES Final Res ult [facility] [address] [place] [address] from Last 3 Months or Most Recently Relevant to Health Maintenance Insurance [facility] [employer] Address: [address] [place] [address] [facility] CARE OTHER [facility] Advance Directives For more information, please contact: [phone] * Full Code (Latest Code Status on File) Date Activated Date Inactivated Comments 05/09/2017 3:33 PM 05/11/2017 5:06 PM Care Teams Equipment Maintenance Technician Relationship Specialty Start Date End Date Niki Hanna NP [facility] [facility] [place] [id number] PCP - General Cardiovascular Disease 01/16/24
[2024-06-03 20:00] LABS: Basophils Absolute Auto 0.1 K/mm3 (0.0-0.1); Basophils Percent Auto 0.7 % (0.2-1.2); Eosinophils Absolute Auto 0.2 K/mm3 (0-0.3); Eosinophils Percent Auto 2.7 % (0-4.4); Hematocrit 39.7 % (42.0-52.0); Hemoglobin 12.6 g/dL (14.0-18.0); Immature Granulocyte Absolute 0.02 K/mm3 (0.00-0.031); Immature Granulocyte Percent A 0.3 % (0-0.5); Lymphocytes Absolute Auto 1.59 K/mm3 (0.9-3.2); Lymphocytes Percent Auto 23.8 % (18.3-44.2); Mean Corpuscular HGB Conc 31.7 g/dl (32-36); Mean Corpuscular Hemoglobin 29.9 pg (26-34); Mean Corpuscular Volume 94.3 fl (80-100); Mean Platelet Volume 9.9 fl (7.4-10.4); Monocytes Absolute Auto 0.7 K/mm3 (0.1-0.6); Monocytes Percent Auto 10.3 % (2.6-8.5); Neutrophils Absolute Auto 4.2 K/mm3 (1.3-6.7); Neutrophils Percent Auto 62.2 % (45.5-73.1); Platelet Count Result 239 k/mm3 (150-375); Red Blood Count 4.21 M/mm3 (4.6-6.20); Red Cell Distribution Width 14.7 % (11.5-14.5); White Blood Count 6.7 K/mm3 (4.5-10.0)
[2024-06-03 20:02] LABS: Iron 93 ug/dL (49-181)
[2024-06-03 20:12] LABS: Percent Iron Saturation 28 % (20-50)
[2024-06-03 21:09] LABS: Anion Gap 13 mmol/L (4-12); Blood Urea Nitrogen 5 mg/dL (9-20); Calcium 8.8 mg/dL (8.4-10.2); Carbon Dioxide 23 mmol/L (22-30); Chloride 96 mmol/L (98-107); Estimated Glomerular Filt Rate > 60; Glucose 118 mg/dL (65-110); Potassium 3.2 mmol/L (3.4-5.0); Sodium 132 mmol/L (137-145)
[2024-06-04 18:34] LABS: Hemoglobin A1C 5.8 % (<5.7)
== END 2024-06-03 08:13 | disposition home or self-care (01) ==
LOC: ANHGOSHLAB 08:14
PROVIDERS: PCP Internal Medicine; Visit Provider Clinical Nurse Specialist
DX: D50.8 Other iron deficiency anemias (principal); E11.9 Type 2 diabetes mellitus without complications; Z79.4 Long term (current) use of insulin; R74.8 Abnormal levels of other serum enzymes
CPT/HCPCS: 36415; 80048; 82728; 83036; 83540; 83550; 85025

== ENCOUNTER 2024-12-17 08:26 | Outpatient (CLI) | payer OTHER, SELFPAY ==
[2024-12-17 13:01] LABS: Hematocrit 40.1 % (42.0-52.0); Hemoglobin 13.2 g/dL (14.0-18.0); Immature Granulocyte Percent A 0.5 % (0-0.5); Lymphocytes Absolute Auto 2.15 K/mm3 (0.9-3.2); Mean Corpuscular HGB Conc 32.9 g/dl (32-36); Mean Corpuscular Hemoglobin 30.8 pg (26-34); Mean Corpuscular Volume 93.5 fl (80-100); Nucleated Red Blood Cells Absolute Auto 0.000 K/mm3 (0.0-0.012); Nucleated Red Blood Cells Perc 0.0 % (0.0-0.2); Platelet Count Result 216 k/mm3 (150-375); Red Blood Count 4.29 M/mm3 (4.6-6.20); White Blood Count 10.4 K/mm3 (4.5-10.0)
[2024-12-17 13:02] LABS: Alanine Aminotransferase 31 U/L (6-50); Albumin Level 4.0 g/dL (3.5-5.1); Alkaline Phosphatase 90 U/L (38-126); Anion Gap 7 mmol/L (4-12); Aspartate Amino Transferase 47 U/L (17-59); Bilirubin,Total 0.6 mg/dL (0.2-1.3); Blood Urea Nitrogen 12 mg/dL (9-20); Calcium 8.5 mg/dL (8.4-10.2); Carbon Dioxide 23 mmol/L (22-30); Chloride 105 mmol/L (98-107); Cholesterol 112 mg/dL (0-200); Estimated Glomerular Filt Rate > 60; Glucose 111 mg/dL (65-110); HDL Direct 56 mg/dL; Potassium 4.1 mmol/L (3.4-5.0); Sodium 135 mmol/L (137-145); Total Protein 6.8 g/dL (6.3-8.2); Triglycerides 198 mg/dL (<150)
[2024-12-17 13:56] LABS: Prostate Specific Antigen 1.1 ng/mL (< OR = 4.0); Thyroid Stimulating Hormone 1.850 uIU/mL (0.465-4.680)
[2024-12-17 14:15] LABS: Vitamin B12 253.0 pg/mL (239-931)
[2024-12-17 14:55] LABS: Hemoglobin A1C 6.0 % (<5.7)
--- OUTSIDE RECORDS SUMMARY | 2024-12-17 17:15 | XMS_ITS | Clinical Summary ---
Author Organization [facility] Address [address] [place] [address] Care Team Providers Care Chief Of Production Name Role Phone Niki Hanna NP Primary [...] History Date Comments Type 2 diabetes mellitus Diabete s type 2; Comments: TIFFANY 01/15/2014 - Hyperlipidemia Hyperlipidemia; Comments: TIFFANY 01/15/2014 - Hypertension Family History Medical History [...] on file Legal Sex Male 11:26 PM DIRECTOR CORPORATE COMPLIANCE Gender Identity Not on file Sexual Orientation Not on file Last Filed Vital Signs Vital Sign Reading Time Taken Comments Blood Pressure 147/102 01/16/2024 11:30 PM DIRECTOR CORPORATE COMPLIANCE Pulse 95 01/16/2024 11:30 PM DIRECTOR CORPORATE COMPLIANCE Temperature 36.1 C (97 F) 01/16/2024 4:35 PM DIRECTOR CORPORATE COMPLIANCE Respiratory Rate 18 01/16/2024 7:00 PM DIRECTOR CORPORATE COMPLIANCE Oxygen Saturation 96% 01/16/2024 11:30 PM DIRECTOR CORPORATE COMPLIANCE Inhaled Oxygen Concentration - - Weight 126.6 kg (279 lb) 01/16/2024 4:35 PM DIRECTOR CORPORATE COMPLIANCE Height 167.6 cm (5' 6) 01/16/2024 4:35 PM DIRECTOR CORPORATE COMPLIANCE Body Mass Index 45.03 01/16/2024 4:35 PM DIRECTOR CORPORATE COMPLIANCE Plan of Treatment Health Maintenance Due Date Last Done Comments Albumin Creatinine Ratio, Urine 1965 Depression Screening 1965 Hepatitis C Screening 1965 Dilated Eye Exam 1964 Foot Exam 1964 DTaP/Tdap/Td Vaccine (1 - Tdap) 08/31/1975 Hepatitis B Screening 1982 Regular Well Visit/Exam 18-64 1982 Pneumococcal vaccine <65 (1 of 2 - PCV) 08/31/1983 Hemoglobin A1C 09/01/2018 03/04/2018, 05/14/2017 Lipid Panel 03/04/2019 03/04/2018, 04/0 04/2017, 03/30/2015, Additional history exists Prostate Cancer Screening-PSA 03/04/2020 03/04/2018, 05/14/2017 Covid-19 Vaccine (2024-2 6 season) 2024 12/27/2023, 12/03/2022, 02/12/2022, Additional history exists Influenza Vaccine (#1) 2024 , 12/03/2022, 11/22/2021, Additional history exists eGFR 01/15/2025 01/16/2024, 02/12, 05/11/2017, Additional history exists Colon Cancer Screening-Colonoscopy 06/26/2028 06/26/2018 Colon Cancer Screening-CT Colonography Discontinued 06/26/2018 Colon Cancer Screening-DNA Stool Discontinued 06/27/19 Colon Cancer Screening-FIT Discontinued 06/26/2018 Colon Cancer Screening-Sigmoidoscopy Discontinued 06/26/2018 Zoster Vaccine Completed 02/12/2022, 11/22/2021 Procedures Procedure Name Priority Date/Time Associated Diagnosis Comments EGFR STAT 01/16/2024 4:39 PM DIRECTOR CORPORATE COMPLIANCE COLONOSCOPY 06/26/2018 9:35 AM CDT HEMOGLOBIN A1C Routine 03/04/2018 3:31 PM DIRECTOR CORPORATE COMPLIANCE LIPID PANEL Routine 03/04/2018 3:31 PM DIRECTOR CORPORATE COMPLIANCE PSA DIAGNOSTIC Routine 03/04/2018 3:31 PM DIRECTOR CORPORATE COMPLIANCE from Last 3 Months or Most Recently Relevant to Health Maintenance Results * eGFR (01/16/2024 4:39 PM DIRECTOR CORPORATE COMPLIANCE) eGFR >90 >=60 mL/min/1. 73 m2 Comment: [...] last reviewed 2020. Blood 01/16/2024 4:39 PM DIRECTOR CORPORATE COMPLIANCE 01/16/2024 4:41 PM DIRECTOR CORPORATE COMPLIANCE us Daryl Gregory MD LAB BLOOD ORDERABLES Final Re sult [facility] [address] [facility]. Department [place] [address] * COLONOSCOPY (06/26/2018 9:35 AM CDT) Anatomical Region Laterality Modality Other Narrative Procedure Note Mason Viramontes MD - 06/26/2018 9:35 AM CDT [facility] Endoscopy Lab Patient Name: Bonifacio Delaney Procedure Date: 06/26/2018 9:35 AM Date of : 1965 Admit Type: Outpatient Age: 52 Gender: Male Note Status: Finalized Attending MD: Mason Vriamontes M.D. Procedure Date: 06/26/2018 Procedure: Colonoscopy Indications: [...] by the physician, the nurse and the electronic instrument trades worker in the endoscopy suite. Mental Status Examination: [...] piecemeal polypectomy. Procedure Code(s): --- Professional --- 98225, Colonoscopy, flexible; with removal oftumor(s), polyp(s), or [...] or abscess without bleeding CPT copyright 2017 [employer]. All rights reserved. The codes documented in this report are preliminary and upon burglar alarm mechanic reviewmay be revised to meet current compliance requirements. Dr. Mason Viramontes MD Mason Virmaontes M.D. 06/26/2018 10:58:20 AM This report has been electronically signed by the physician. Number of Addenda: 0 Note Initiated On: 06/26/2018 9:35 AM us Mason Viramontes MD ENDOSCOPY PROCEDURES Final R esult * PSA diagnostic (03/04/2018 3:31 PM DIRECTOR CORPORATE COMPLIANCE) PSA-Total 2.27 <=3.90 ng/mL [facility] Comment: Interpretive Data AGE SEX REFERENCE INTERVAL 0 minutes-150 years Female None 0 minutes-49 years Male None 50-59 years Male 0-3.90 60-69 years Male 0-5.40 70-79 years Male 0-6.20 80-150 years Male 0-6.20 Current interpretive data last revised 2018. Blood specimen (specimen) 03/04/2018 3:31 PM DIRECTOR CORPORATE COMPLIANCE 03/04/2018 6:41 PM DIRECTOR CORPORATE COMPLIANCE Narrative [facility] - 03/04/2018 8:13 PM DIRECTOR CORPORATE COMPLIANCE Bekah Aviles NP LAB BLOOD ORDERABLES Final Res ult Performing Organization Address [facility] de Phone Number [facility] [address] [email or web address] [address] * (ABNORMAL) Hemoglobin A1c (03/04/2018 3:31 PM DIRECTOR CORPORATE COMPLIANCE) Hgb A1C 5.8(H) 4.0 - 5.6 % [facility] Estimated Average Glucose 120 mg/dL [facility]LOS Comment: The ADA recommends reporting an estimated Average Glucose (eAG) with all Hemoglobin A1c results using the equation derived from a study of 507 normal and diabetic adults. Minority populations were underrepresented and children were not included. (Diabetes Care 31:6888-6506, 2008). The eAG is not equivalent to a fasting glucose. Blood specimen (specimen) 03/04/2018 3:31 PM DIRECTOR CORPORATE COMPLIANCE 03/04/2018 6:41 PM DIRECTOR CORPORATE COMPLIANCE Narrative [facility] - 03/04/2018 9:46 PM DIRECTOR CORPORATE COMPLIANCE Bekah Aviles NP LAB BLOOD ORDERABLES Final Res ult Performing Organization Address [facility] [[email or web address]] Co de Phone Number [facility] [address] [facility] [place] [address] * Lipid panel (03/04/2018 3:31 PM DIRECTOR CORPORATE COMPLIANCE) Cholesterol 140 30 - 199 mg/dL [facility] [...] [facility] Blood specimen (specimen) 03/04/2018 3:31 PM DIRECTOR CORPORATE COMPLIANCE 03/04/2018 6:41 PM DIRECTOR CORPORATE COMPLIANCE Narrative [facility] - 03/04/2018 8:25 PM DIRECTOR CORPORATE COMPLIANCE Bekah Aviles NP LAB BLOOD ORDERABLES Final Res ult [facility] [address] Department [place] [address] from Last 3 Months or Most Recently Relevant to Health Maintenance Insurance [facility] EM[employer]EE HEALTH PLANS Address: [address] [place] [address] [facility] CARE OTHER [facility] Advance Directives For more information, please contact: [phone] * Full Code (Latest Code Status on File) Date Activated Date Inactivated Comments 05/09/2017 3:33 PM 05/11/2017 5:06 PM Care Teams Chief Of Production Relationship Specialty Start Date End Date Niki Hanna, FABIAN [address] [place] [id number] PCP - General Cardiovascular Disease 01/16/24
--- OUTSIDE RECORDS SUMMARY | 2024-12-17 17:15 | XMS_ITS | Clinical Summary ---
Author Organization [facility] Address [address] [place] [address] Phone Care Team Providers Care Equity Research Associate Name Role Phone Unavailable Primary Care Provider Unavailabl e Active Problems Problem Noted Date Diagnosed Date Alcohol use disorder, severe, in early remission 07/22/2017 Mild early onset dysthymic d isorder, in partial remission, with atypical features, with intermittent major depressive episodes, with current episode 07/22/2017 Social History Tobacco Use Types Packs/Day Years Used Date Smoking Tobacco: Former Cigarettes 0 Q uit: 07/22/2002 Smokeless Tobacco: Never Alcohol [...] Virus (HCV) Screening 1965 TdaP Immunization 1965 Cologuard 2009 Colonoscopy 2009 Colorectal Cancer Screening 2009 Immunochemical Fecal Occult Blood 2009 Pneumococcal Immunization (5 0+ years) (1 of 1 - PCV) 2014 Zoster Immunization (1 of 2) 2014 Influenza Immunization (#1) 2024 10/29/2015 SARS-COV-2 Immunization ( season) 2024 02/07/2021, 06/05/2020, 05/14/2020 Respiratory Syncytial Virus (RSV) Immunization (Adult) (1 - 1-dose 75+ series) 08/31/2039 Hepatitis B Immunization Aged Out No longer eligible based on patient's age to complete this topic Human Papillomavirus (HPV) Immunization Aged Out No longer eligible b ased on patient's age to complete this topic Meningococcal Immunization (ACWY) Aged Out No longer eligible b ased on patient's age to complete this topic Rotavirus Immunization Aged Out No lo nger eligible based on patient's age to complete this topic Insurance [employer]
== END 2024-12-17 08:27 | disposition home or self-care (01) ==
LOC: ANHGOSHLAB 08:27
PROVIDERS: PCP Clinical Nurse Specialist; Visit Provider Clinical Nurse Specialist
DX: Z12.5 Encounter for screening for malignant neoplasm of prostate (principal); E78.5 Hyperlipidemia, unspecified; I10 Essential (primary) hypertension; E11.9 Type 2 diabetes mellitus without complications; E87.1 Hypo-osmolality and hyponatremia; F41.9 Anxiety disorder, unspecified; G45.9 Transient cerebral ischemic attack, unspecified; E87.6 Hypokalemia; D50.8 Other iron deficiency anemias; Z79.4 Long term (current) use of insulin
CPT/HCPCS: 36415; 80053; 80061; 82607; 83036; 84153; 84443; 85025; G0103